=== PATIENT | male | born 1980 | race Caucasian/White ===

== ENCOUNTER 2017-05-29 12:59 | Inpatient (IN) | payer SELFPAY ==
[2017-05-29] VITALS (7 sets, daily range): BP systolic 108–138; BP diastolic 65–92; PULSE 73–101; RESP 16–20; TEMP 97.6–98.7; O2SAT 96–99
[~2017-05-29] VITALS: Ht 185.4 cm; Wt 75.3 kg
[~2017-05-29 12:59] MED LIST: RANI150 PO; ZOFR4TAB3 PO
[2017-05-29] MEDS ORDERED: SODIUM CHLORIDE 0.9% FLUSH 10 ML FLUSH IVF PRN (13:30)
[2017-05-29] MEDS ORDERED: SODIUM CHLORID 0.9% 500 ML INJ 500 ML IV ONE (13:30)
[2017-05-29] MEDS ORDERED: ASPIRIN 81 MG CHEW TAB PO ONE (13:30)
[2017-05-29 13:52] LABS: AUTOMATED NEUTROPHIL # 6.5 TH/MM3 (1.8-7.7); BASOPHIL % 0.3 % (0.0-2.0); EOSINOPHIL % 0.3 % (0.0-4.0); HEMATOCRIT 42.2 % (39.0-51.0); HEMO FLAGS DIFF FINAL; LYMPH % 17.6 % (9.0-44.0); LYMPHOCYTE # 1.6 TH/MM3 (1.0-4.8); MEAN CELL VOLUME 95.3 FL (80.0-100.0); MEAN CORPUSCULAR HEMOGLOBIN 33.7 PG (27.0-34.0); MEAN CORPUSCULAR HGB CONC 35.4 % (32.0-36.0); MONO % 9.3 % (0.0-8.0); NEUT % 72.5 % (16.0-70.0); PLATELET COUNT 194 TH/MM3 (150-450); RED BLOOD COUNT 4.43 MIL/MM3 (4.50-5.90); RED CELL DISTRIBUTION WIDTH 12.3 % (11.6-17.2); WHITE BLOOD COUNT 8.9 TH/MM3 (4.0-11.0)
[2017-05-29 14:18] LABS: ALT (GPT) 60 U/L (12-78); ANION GAP 16 MEQ/L (5-15); AST (GOT) 98 U/L (15-37); BICARBONATE 28.3 MEQ/L (21.0-32.0); BLOOD UREA NITROGEN 7 MG/DL (7-18); CHLORIDE 95 MEQ/L (98-107); GLOMERULAR FILTRATION RATE 101 ML/MIN (>89); MAGNESIUM 2.2 MG/DL (1.5-2.5); POTASSIUM 3.4 MEQ/L (3.5-5.1); SODIUM (NA) 139 MEQ/L (136-145)
--- NOTE | 2017-05-29 14:19 | PD ---
HPI Chief Complaint: Cardiac Complaint Time Seen by Provider: 13:30 Travel History International Travel<30 days: No Contact w/Intl Traveler<30days: No Traveled to known affect area: No History of Present Illness HPI Patient is a 37-year-old male presenting to emergency for evaluation of chest pain. Patient states the pain started at 9:00 last night, due to the pain he was unable to sleep. He reports that the pain radiates across his anterior chest wall. He states that his left arm feels numb in both of his legs feel numb. He reports a dull headache as well. He denies any visual changes or weakness. He does report shortness of breath, nausea but has not vomited, he further denies any fevers, chills. He reports feeling fine prior to 9:00 last night. He rates the chest pain as a 7 out of 10 and states it sore. The pain is exacerbated with movement and deep inspiration, it is not alleviated by anything. PFSH Past Medical History Blood Disorders: No Anxiety: Yes Depression: Yes Cancer: No Cardiovascular Problems: No Diabetes: No Diminished Hearing: No Endocrine: No Gastrointestinal Disorders: Yes (SEVERE HEMORRHOIDS, COLONOSCOPY) Implanted Vascular Access Dvce: No Musculoskeletal: Yes (SCOLIOSIS) Neurologic: Yes (ESSENTIAL TREMOR) Respiratory: Yes (PNEUMOTHORAX, chronic bronchitis) Immunizations Current: Yes Pneumonia: Yes (PNEUMOTHORAX) Tetanus Vaccination: < 5 Years Influenza Vaccination: No Past Surgical History Other Surgery: Yes (PNUEMOTHORAX 2005) Social History Alcohol Use: Yes (twice a day) Tobacco Use: Yes (1/2 pack per day ) Substance Use: Yes (MARIJUANA ) Allergies-Medications (Allergen,Severity, Reaction): Coded Allergies: No Known Allergies (Verified , 05/29/17) Reported Meds & Prescriptions Reported Meds & Active Scripts Active No Active Prescriptions or Reported Medications Review of Systems Except as stated in HPI: all other systems reviewed are Neg Cardiovascular: Positive: Chest Pain or Discomfort Respiratory: Positive: Shortness of Breath, Pleuritic Pain, No: Cough, Wheezing Gastrointestinal: Positive: Nausea, No: Vomiting, Diarrhea, Abdominal Pain Musculoskeletal: No: Weakness Neurologic: Positive: Headache, No: Weakness, Dizziness, Focal Abnormalities, Change in Mentation, Slurred Speech, Sensory Disturbance Physical Exam Narrative GENERAL: Thin, well-developed, well-nourished, alert male. Resting comfortably in no acute distress. SKIN: Warm and dry. Superficial abrasions to knees HEAD: Atraumatic. Normocephalic. EYES: Pupils equal and round. No scleral icterus. No injection or drainage. ENT: No nasal bleeding or discharge. Mucous membranes pink and moist. NECK: Trachea midline. No JVD. CARDIOVASCULAR: Regular rate and rhythm. RESPIRATORY: No accessory muscle use. Clear to auscultation. Breath sounds equal bilaterally. GASTROINTESTINAL: Abdomen soft, non-tender, nondistended. Hepatic and splenic margins not palpable. MUSCULOSKELETAL: Extremities without clubbing, cyanosis, or edema. No obvious deformities. Tenderness to palpation on anterior chest wall is noted. NEUROLOGICAL: Awake and alert. No obvious cranial nerve deficits. Motor grossly within normal limits. Five out of 5 muscle strength in the arms and legs. Normal speech. PSYCHIATRIC: Appropriate mood and affect; insight and judgment normal. Data Data Last Documented VS Vital Signs Date Time Temp Pulse Resp B/P Pulse Ox O2 Delivery O2 Flow Rate FiO2 05/29/17 18:22 97.9 82 17 108/65 98 Room Air Orders Electrocardiogram (05/29/17 ) Electrocardiogram (05/29/17 13:25) Ckmb (Isoenzyme) Profile (05/29/17 13:25) Complete Blood Count With Diff (05/29/17 13:25) Comprehensive Metabolic Panel (05/29/17 13:25) D-Dimer (05/29/17 13:25) Magnesium (Mg) (05/29/17 13:25) Prothrombin Time / Inr (Pt) (05/29/17 13:25) Act Partial Throm Time (Ptt) (05/29/17 13:25) Troponin I (05/29/17 13:25) Chest, Single Ap (05/29/17 13:25) Ecg Monitoring (05/29/17 13:25) Bilateral Bp Monitoring (05/29/17 13:25) Iv Access Insert/Monitor (05/29/17 13:25) Oximetry (05/29/17 13:25) Oxygen Administration (05/29/17 13:25) Aspirin Chew (Aspirin Chew) (05/29/17 13:30) Sodium Chloride 0.9% Flush (Ns Flush) (05/29/17 13:30) Sodium Chlorid 0.9% 500 Ml Inj (Ns 500 M (05/29/17 13:30) Creatine Kinase (Cpk) (05/29/17 13:25) Drug Screen, Random Urine (05/29/17 13:25) Urinalysis - C+S If Indicated (05/29/17 13:25) Lipase (05/29/17 13:28) Alcohol (Ethanol) (05/29/17 13:29) CKMB (05/29/17 13:06) CKMB% (05/29/17 13:06) Ct Pulmonary Angiogram (05/29/17 ) Lactic Acid (05/29/17 15:06) Sodium Chlor 0.9% 1000 Ml Inj (Ns 1000 M (05/29/17 15:45) Iohexol 350 Inj (Omnipaque 350 Inj) (05/29/17 15:56) Sodium Chlor 0.9% 1000 Ml Inj (Ns 1000 M (05/29/17 16:30) Arterial Blood Gas (Abg) (05/29/17 ) Lactic Acid (05/29/17 16:36) Blood Culture (05/29/17 16:36) Vancomycin Inj (Vancomycin Inj) (05/29/17 18:10) Piperacil-Tazo 4.5 Gm Premix (Zosyn 4.5 (05/29/17 18:10) Labs Laboratory Tests Test 05/29/17 05/29/17 05/29/17 05/29/17 13:06 14:20 15:00 17:00 White Blood Count 8.9 TH/MM3 Red Blood Count 4.43 MIL/MM3 Hemoglobin 14.9 GM/DL Hematocrit 42.2 % Mean Corpuscular Volume 95.3 FL Mean Corpuscular Hemoglobin 33.7 PG Mean Corpuscular Hemoglobin 35.4 % Concent Red Cell Distribution Width 12.3 % Platelet Count 194 TH/MM3 Mean Platelet Volume 6.5 FL Neutrophils (%) (Auto) 72.5 % Lymphocytes (%) (Auto) 17.6 % Monocytes (%) (Auto) 9.3 % Eosinophils (%) (Auto) 0.3 % Basophils (%) (Auto) 0.3 % Neutrophils # (Auto) 6.5 TH/MM3 Lymphocytes # (Auto) 1.6 TH/MM3 Monocytes # (Auto) 0.8 TH/MM3 Eosinophils # (Auto) 0.0 TH/MM3 Basophils # (Auto) 0.0 TH/MM3 CBC Comment DIFF FINAL Differential Comment Prothrombin Time 10.3 SEC Prothromb Time International 0.9 RATIO Ratio Activated Partial 25.6 SEC Thromboplast Time D-Dimer Quantitative (PE/DVT) 23.01 MG/L FEU Sodium Level 139 MEQ/L Potassium Level 3.4 MEQ/L Chloride Level 95 MEQ/L Carbon Dioxide Level 28.3 MEQ/L Anion Gap 16 MEQ/L Blood Urea Nitrogen 7 MG/DL Creatinine 0.85 MG/DL Estimat Glomerular Filtration 101 ML/MIN Rate Random Glucose 99 MG/DL Calcium Level 8.6 MG/DL Magnesium Level 2.2 MG/DL Total Bilirubin 0.9 MG/DL Aspartate Amino Transf 98 U/L (AST/SGOT) Alanine Aminotransferase 60 U/L (ALT/SGPT) Alkaline Phosphatase 58 U/L Total Creatine Kinase 319 U/L Creatine Kinase MB 1.0 NG/ML Creatine Kinase MB % 0.3 % Troponin I LESS THAN 0.02 NG/ML Total Protein 7.9 GM/DL Albumin 4.5 GM/DL Lipase 227 U/L Ethyl Alcohol Level 332 MG/DL Urine Color LIGHT-YELLOW Urine Turbidity CLEAR Urine pH 6.5 Urine Specific [place] 1.004 Urine Protein NEG mg/dL Urine Glucose (UA) NEG mg/dL Urine Ketones 10 mg/dL Urine Occult Blood NEG Urine Nitrite NEG Urine Bilirubin NEG Urine Urobilinogen LESS THAN 2.0 MG/DL Urine Leukocyte Esterase NEG Urine RBC LESS THAN 1 /hpf Urine WBC LESS THAN 1 /hpf Urine Bacteria OCC /hpf Microscopic Urinalysis Comment CULT NOT INDICATED Urine Opiates Screen NEG Urine Barbiturates Screen NEG Urine Amphetamines Screen NEG Urine Benzodiazepines Screen NEG Urine Cocaine Screen NEG Urine Cannabinoids Screen NEG Lactic Acid Level 4.9 mmol/L 5.3 mmol/L Test 05/29/17 17:05 Blood Gas Puncture Site LT RADIAL Blood Gas Patient Temperature 98.6 Blood Gas HCO3 25 mmol/L Blood Gas Base Excess 2.5 mmol/L Blood Gas Oxygen Saturation 93 % Arterial Blood pH 7.52 Arterial Blood Partial 31 mmHg Pressure CO2 Arterial Blood Partial 88 mmHG Pressure O2 Arterial Blood Oxygen Content 17.2 Vol % Arterial Blood 3.1 % Carboxyhemoglobin Arterial Blood Methemoglobin 0.8 % Blood Gas Hemoglobin 13.0 G/DL Blood Gas Inspired Oxygen 21 % MDM Medical Decision Making Medical Screen Exam Complete: Yes Emergency Medical Condition: Yes Interpretation(s) Last Impressions Chest X-Ray 05/29/17 1325 Signed Impressions: Service Date/Time: Monday, May 29, 2017 13:57 - CONCLUSION: 1. No active disease. Mild scoliosis. No significant change. Al Romo MD Vital Signs Date Time Temp Pulse Resp B/P Pulse Ox O2 Delivery O2 Flow Rate FiO2 05/29/17 13:31 17 98 Room Air 05/29/17 13:31 98 Room Air 05/29/17 13:31 97.8 98 17 117/79 97 Room Air 121/86 05/29/17 13:10 98 17 99 Room Air 05/29/17 13:00 98.7 101 20 138/92 96 Differential Diagnosis ACS versus costochondritis versus rhabdomyolysis versus metabolic abnormality versus other Narrative Course Patient is a 37-year-old male presenting for evaluation of chest pain started last night. Patient appears well, his vital signs are stable. Labs and imaging ordered and pending. IV access established, patient placed on telemetry monitoring and continuous pulse oximetry. Patient denies any previous cardiac history. CBC with no acute abnormality noted. Chest x-ray shows no acute disease D-dimer 23.01, CT pulmonary angiogram ordered and pending. Lipase 227 CK 319 Potassium 3.4 Anion gap 16 Lactic 4.9, 2L IVF ordered, repeat lactic ordered as well as blood cultures. Repeat lactic acid 5.3 ABG shows metabolic alkalosis with superimposed respiratory acidosis. CT pulm angiogram read by radiologist is negative for PE, mild peribronchial thickening. Vancomycin and Zosyn ordered [facility] paged for admit. Pt meets sepsis criteria based on HR and PaCO2 values. Dr. Yañez accepted admit, orders placed. Sepsis Criteria SIRS Criteria (2 or more): Heart rate over 90, RR > 20 or PaCO2 < 32 (31.4 PaCO2) Severe Sepsis (+one): Lactate >2 Septic Shock Criteria: Unresponsive to 30ml/kg fluid bolus, Lactic acid >=4 Criteria Outcome: Meets septic shock criteria Diagnosis Primary Impression: Sepsis Qualified Code: A41.9 - Sepsis, due to unspecified organism Admitting Information Admitting Physician Requests: Admit Scripts No Active Prescriptions or Reported Meds Condition: Stable Donna Laboy INSTRUCTIONAL DESIGN TECHNOLOGIST May 29, 2017 14:19
[2017-05-29 14:22] LABS: ALKALINE PHOSPHATASE 58 U/L (45-117); CREATINE KINASE 319 U/L (39-308); TOTAL BILIRUBIN ADULT 0.9 MG/DL (0.2-1.0)
--- NOTE | 2017-05-29 14:29 | RADRPT ---
EXAM DATE/TIME: 05/29/2017 13:57 [facility] COMPARISON: CHEST SINGLE AP, November 14, 2015, 18:58. INDICATIONS : Chest pain. MEDICAL HISTORY : Scoliosis. SURGICAL HISTORY : None. ENCOUNTER: Initial ACUITY: 2 days PAIN SCORE: 6/10 LOCATION: Bilateral chest FINDINGS: A single view of the chest demonstrates the lungs to be symmetrically aerated without evidence of mas s, infiltrate or effusion. The cardiomediastinal contours are unremarkable. Osseous structures are intact. CONCLUSION: 1. No active disease. Mild scoliosis. No significant change. Al Romo MD on May 29, 2017 at 14:27 Board Certified Radiologist. This report was verified electronically.
[2017-05-29 14:30] LABS: APTT (PATIENT) 25.6 SEC (24.3-30.1); INTERNATIONAL NORMALIZED RATIO 0.9 RATIO; PROTHROMBIN TIME - PATIENT 10.3 SEC (9.8-11.6)
[2017-05-29 15:00] LABS: AMPHETAMINE, URINE NEG (NEG); BARBITURATES, URINE NEG (NEG); COCAINE, URINE NEG (NEG)
[2017-05-29 15:16] LABS: BACTERIA, URINE OCC /hpf; BLOOD, URINE NEG (NEG); COMMENT (UR) CULT NOT INDICATED; CULTURE IF INDICATED CULT NOT INDICATED; GLUCOSE,URINE NEG (NEG); KETONE, URINE 10 mg/dL (NEG); NITRITE,URINE NEG (NEG); PH, URINE 6.5 (5.0-8.5); URINE COLOR LIGHT-YELLOW (YELLW/STRAW)
[2017-05-29] MEDS ORDERED: SODIUM CHLOR 0.9% 1000 ML INJ 1,000 ML IV ONE ×2 (15:45→16:30)
[2017-05-29] MEDS ORDERED: IOHEXOL 350 MG/ML 10 ML VIAL (for RAD DIAG) IV ONE (15:56)
--- NOTE | 2017-05-29 16:30 | RADRPT ---
EXAM DATE/TIME: 05/29/2017 15:34 [facility] COMPARISON: No previous studies available for comparison. INDICATIONS : Chest pain with arms tingling. IV CONTRAST: 50 cc Omnipaque 350 (iohexol) IV RADIATION DOSE: 22.74 CTDIvol (mGy) MEDICAL HISTORY : None SURGICAL HISTORY : None. ENCOUNTER: Initial ACUITY: 1 day PAIN SCALE: 6/10 LOCATION: chest TECHNIQUE: Volumetric scanning of the chest was performed using a pulmonary embolism protocol MIP images were re constructed. Using automated exposure control and adjustment of the mA and/or kV according to patien t size, radiation dose was kept as low as reasonably achievable to obtain optimal diagnostic quality images. DICOM format image data is available electronically for review and comparison. Follow-up recommendations for incidentally detected pulmonary nodules are based at a minimum on nodul e size and patient risk factors according to Fleischner Society Guidelines. FINDINGS: No filling defects to suggest pulmonary embolic disease. No pleural or pericardial effusion. No focal lung consolidation. There is mild peribronchial thickening cyst in the upper lobes.CONCLUSION: 1. Negative for pulmonary embolus. 2. Mild peribronchial thickening. Al Romo MD on May 29, 2017 at 16:12 Board Certified Radiologist. This report was verified electronically.
[2017-05-29 17:21] LABS: BLOOD GAS BASE EXCESS 2.5 mmol/L (-2-2); BLOOD GAS CARBOXYHEMOGLOBIN 3.1 % (0-4); BLOOD GAS HCO3 25 mmol/L (22-26); BLOOD GAS METHEMOGLOBIN 0.8 % (0-2); BLOOD GAS O2 HGB SATURATION 93 % (90-100); BLOOD GAS OXYGEN CONTENT 17.2 Vol % (12.0-20.0); BLOOD GAS PCO2 31 mmHg (38-42); BLOOD GAS PO2 88 mmHG (61-120); CRITICAL VALUE YES; TEMP CORR TO 98.6
[2017-05-29 17:22] LABS: DRAW SITE LT RADIAL; FIO2 21 %; NUMBER OF ARTERIAL PUNCTURES 1; STAT YES; ULNAR PULSE PRESENT
[2017-05-29] MEDS ORDERED: VANCOMYCIN INJ 1,000 MG in SODIUM CHLOR 0.9% 250 ML INJ 250 ML IV STA (18:10)
[2017-05-29] MEDS ORDERED: PIPERACIL-TAZO 4.5 GM PREMIX 100 ML IV STA (18:10)
[2017-05-29] MEDS ORDERED: BISACODYL 10 MG SUPP RECTAL PRN (18:30)
[2017-05-29] MEDS ORDERED: SODIUM CHLORIDE 0.9% FLUSH 10 ML FLUSH IV FLUSH PRN (18:30)
[2017-05-29] MEDS ORDERED: LACTULOSE SYRUP 20 GM/30 ML CUP PO PRN (18:30)
[2017-05-29] MEDS ORDERED: MAGNESIUM HYDROXIDE SUSP 30 ML CUP PO PRN (18:30)
[2017-05-29] MEDS ORDERED: SENNOSIDES 8.6 MG TAB PO PRN (18:30)
[2017-05-29] MEDS ORDERED: NALOXONE HCL 0.4 MG/ML AMP IV PRN (18:30)
[2017-05-29] MEDS ORDERED: FLUMAZENIL 0.5 MG/5 ML VIAL IV PUSH PRN (19:15)
[2017-05-29] MEDS ORDERED: LORazepam 2 MG TAB PO PRN (19:15)
[2017-05-29] MEDS ORDERED: LORazepam 2 MG/ML VIAL IV PUSH PRN ×4 (19:15)
--- NOTE | 2017-05-29 19:22 | HHI.HP ---
[facility] No Primary Care Physician Admission Diagnosis SEPSIS Diagnoses: Travel History International Travel<30 Days: No Contact w/Intl Traveler <30 Da: No Traveled to Known Affected Are: No History of Present Illness 37-year-old male with a history of liver disease, essential tremor, who presents with onset of extreme chest pain the evening of 05/28. Patient says he pain is like somebody standing on his chest. No exacerbating or relieving factors. Tenderness to self palpation. Patient denies that this feels like reflux. He does say that Gatorade here is making his esophagus burn however. He denies any nausea or vomiting. Denies any shortness of breath. Denies any lightheadedness or dizziness. Review of Systems Performed and negative except for history of present illness and past medical history. Past Family Social History Past Medical History Depression. Patient denies any SI or HI Claustrophobia Scoliosis Hemorrhoids History of pneumothorax resolved. Past Surgical History Intervention for pneumothorax in 2004 Colonoscopy Sinus surgery Allergies: Coded Allergies: No Known Allergies (Verified , 05/29/17) Family History does not seem to know much about father's medical history. Social History Patient has smoked a few cigarettes a day since he was 16 years old. When asked about alcohol intake, patient is very defensive. Will not answer with a solid number. Says that he only drinks several beers a day, and only drinks red wine when he is cooking, but not when he is eating. Patient reports occasional marijuana use. Denies any IV drug use. Physical Exam Vital Signs Vital Signs Date Time Temp Pulse Resp B/P Pulse Ox O2 Delivery O2 Flow Rate FiO2 05/29/17 18:22 97.9 82 17 108/65 98 Room Air 05/29/17 16:35 98.5 77 18 122/84 98 Room Air 05/29/17 14:27 97.8 96 17 120/87 99 Room Air 05/29/17 13:31 17 98 Room Air 05/29/17 13:31 98 Room Air 05/29/17 13:31 97.8 98 17 117/79 97 Room Air 121/86 05/29/17 13:10 98 17 99 Room Air 05/29/17 13:00 98.7 101 20 138/92 96 Physical Exam GENERAL: This is a well-nourished, well-developed patient. Alert and oriented 3. SKIN: No rashes, ecchymoses or lesions. Cool and dry. HEAD: Atraumatic. Normocephalic. No temporal or scalp tenderness. EYES: Pupils equal round and reactive. Extraocular motions intact. No scleral icterus. No injection or drainage. ENT: Nose without bleeding, purulent drainage or septal hematoma. Throat without erythema, tonsillar hypertrophy or exudate. Uvula midline. Airway patent. NECK: Trachea midline. No JVD or lymphadenopathy. Supple, nontender, no meningeal signs. CARDIOVASCULAR: Regular rate and rhythm without murmurs, gallops, or rubs. RESPIRATORY: Clear to auscultation. Breath sounds equal bilaterally. No wheezes , rales, or rhonchi. GASTROINTESTINAL: Abdomen soft, non-tender, nondistended. No hepato-splenomegaly , or palpable masses. No guarding. MUSCULOSKELETAL: Extremities without clubbing, cyanosis, or edema. No joint tenderness, effusion, or edema noted. No calf tenderness. Negative Homans sign bilaterally. NEUROLOGICAL: Awake and alert. Cranial nerves II through XII intact. Motor and sensory grossly within normal limits. Five out of 5 muscle strength in all muscle groups. Normal speech. Patient does have fine tremor bilaterally. Laboratory Laboratory Tests Test 05/29/17 05/29/17 05/29/17 05/29/17 13:06 14:20 15:00 17:00 White Blood Count 8.9 Red Blood Count 4.43 Hemoglobin 14.9 Hematocrit 42.2 Mean Corpuscular Volume 95.3 Mean Corpuscular Hemoglobin 33.7 Mean Corpuscular Hemoglobin 35.4 Concent Red Cell Distribution Width 12.3 Platelet Count 194 Mean Platelet Volume 6.5 Neutrophils (%) (Auto) 72.5 Lymphocytes (%) (Auto) 17.6 Monocytes (%) (Auto) 9.3 Eosinophils (%) (Auto) 0.3 Basophils (%) (Auto) 0.3 Neutrophils # (Auto) 6.5 Lymphocytes # (Auto) 1.6 Monocytes # (Auto) 0.8 Eosinophils # (Auto) 0.0 Basophils # (Auto) 0.0 CBC Comment DIFF FINAL Differential Comment Prothrombin Time 10.3 Prothromb Time International 0.9 Ratio Activated Partial 25.6 Thromboplast Time D-Dimer Quantitative (PE/DVT) 23.01 Sodium Level 139 Potassium Level 3.4 Chloride Level 95 Carbon Dioxide Level 28.3 Anion Gap 16 Blood Urea Nitrogen 7 Creatinine 0.85 Estimat Glomerular Filtration 101 Rate Random Glucose 99 Calcium Level 8.6 Magnesium Level 2.2 Total Bilirubin 0.9 Aspartate Amino Transf 98 (AST/SGOT) Alanine Aminotransferase 60 (ALT/SGPT) Alkaline Phosphatase 58 Total Creatine Kinase 319 Creatine Kinase MB 1.0 Creatine Kinase MB % 0.3 Troponin I LESS THAN 0.02 Total Protein 7.9 Albumin 4.5 Lipase 227 Ethyl Alcohol Level 332 Urine Color LIGHT-YELLOW Urine Turbidity CLEAR Urine pH 6.5 Urine Specific [place] 1.004 Urine Protein NEG Urine Glucose (UA) NEG Urine Ketones 10 Urine Occult Blood NEG Urine Nitrite NEG Urine Bilirubin NEG Urine Urobilinogen LESS THAN 2.0 Urine Leukocyte Esterase NEG Urine RBC LESS THAN 1 Urine WBC LESS THAN 1 Urine Bacteria OCC Microscopic Urinalysis Comment CULT NOT INDICATED Urine Opiates Screen NEG Urine Barbiturates Screen NEG Urine Amphetamines Screen NEG Urine Benzodiazepines Screen NEG Urine Cocaine Screen NEG Urine Cannabinoids Screen NEG Lactic Acid Level 4.9 5.3 Test 05/29/17 17:05 Blood Gas Puncture Site LT RADIAL Blood Gas Patient Temperature 98.6 Blood Gas HCO3 25 Blood Gas Base Excess 2.5 Blood Gas Oxygen Saturation 93 Arterial Blood pH 7.52 Arterial Blood Partial 31 Pressure CO2 Arterial Blood Partial 88 Pressure O2 Arterial Blood Oxygen Content 17.2 Arterial Blood 3.1 Carboxyhemoglobin Arterial Blood Methemoglobin 0.8 Blood Gas Hemoglobin 13.0 Blood Gas Inspired Oxygen 21 Date/Time Procedure Status Source Growth 05/29/17 17:01 Aerobic Blood Culture Received Blood Peripheral Pending 05/29/17 17:01 Anaerobic Blood Culture Received Blood Peripheral Pending Result Diagram: 05/29/17 1306 05/29/17 1306 Imaging Last Impressions Chest X-Ray 05/29/17 1325 Signed Impressions: Service Date/Time: Monday, May 29, 2017 13:57 - CONCLUSION: 1. No active disease. Mild scoliosis. No significant change. Al Romo MD CT Angiography 05/29/17 0000 Signed Impressions: Service Date/Time: Monday, May 29, 2017 15:34 - CONCLUSION: 1. Negative for pulmonary embolus. 2. Mild peribronchial thickening. Al Romo MD Assessment and Plan Assessment and Plan //Atypical Chest pain -Tenderness to palpation. Suspect costochondritis. Also with esophageal burning worsened by Gatorade. Suspect reflux worsened by alcoholism. -Time of onset around bedtime on 05/28. First troponin here negative at 1 PM. -PPI. Monitor. //Sepsis -Tachycardia on admission of 101, with heart rate of 20. Elevated lactate 5.3. Suspected pneumonia on CT on angiogram, with peribronchial thickening. Suspected aspiration given alcoholism. -Zosyn Follow-up cultures //Anion gap metabolic acidosis //Possible alcoholic ketoacidosis //Lactic acidosis -Lactate 5.3. Ketones 10 on urinalysis. Lactic acidosis Likely secondary to sepsis and conjunction with liver dysfunction. We'll give thiamine, D5 half- normal saline. - recheck lactate. //Alcoholism. -Alcohol level in the 300s on admission. Patient denies drinking in the past day -[facility] protocol -Counseling when sober. //Tobaccoism. Counseling when sober //Acute anemia. Potassium 3.4 on admission. Although this typically would be considered mild, in the setting of acidosis which will be corrected, this has a potential for going lower. This is replaced, and also add to fluid. Follow-up tomorrow morning. //Marijuana use. Counseling once over. //DVT prophylaxis. SCDs. Avoid and regulation of the setting of liver disease. Discussed Condition With Patient, ED physician. Physician Certification 2 Midnight Certification Type: Admission for Inpatient Services Order for Inpatient Services The services are ordered in accordance with Medicare regulations or non- Medicare payer requirements, as applicable. In the case of services not specified as inpatient-only, they are appropriately provided as inpatient services in accordance with the 2-midnight benchmark. Estimated LOS (days): 2 days is the estimated time the patient will need to remain in the hospital, assuming treatment plan goals are met and no additional complications. Post-Hospital Plan: Not yet determined Boston Yañez MD May 29, 2017 19:22
[2017-05-29] MEDS ORDERED: THIAMINE INJ 500 MG in SODIUM CHLORIDE 0.9% INJ 100 ML IV ONE (20:00)
[2017-05-29] MEDS ORDERED: THIAMINE INJ 500 MG in SODIUM CHLOR 0.9% 250 ML INJ 250 ML IV ONE (20:08)
[2017-05-29] MEDS: PANTOPRAZOLE SODIUM 40 MG VIAL IV PUSH SCH (20:31)
[2017-05-29] MEDS ORDERED: THIAMINE HCL 100 MG TAB PO ONE (21:00)
[2017-05-29] MEDS: D5-1/2 NS + KCL 20 MEQ INJ 1,000 ML IV SCH (21:03)
[2017-05-29] MEDS: MORPHINE SULFATE 4 MG/ML INJ IV PUSH PRN (21:28)
[2017-05-29] MEDS: POTASSIUM CHLOR 10 MEQ PREMIX 100 ML IV SCH (23:04)
[2017-05-29] MEDS: ONDANSETRON HCL 4 MG/2 ML VIAL IVP PRN (23:04)
[2017-05-29] MEDS: DOCUSATE SODIUM 50 MG/SENNA 8.6 MG TAB PO SCH (23:05)
[2017-05-29] MEDS: LORazepam 1 MG TAB PO PRN (23:05)
[2017-05-29] MEDS: SODIUM CHLORIDE 0.9% FLUSH 10 ML FLUSH IV FLUSH SCH (23:06)
[2017-05-30] VITALS (9 sets, daily range): BP systolic 114–131; BP diastolic 73–80; PULSE 55–79; RESP 16–20; TEMP 96–98.9; O2SAT 96–98
[2017-05-30] MEDS: PIPERACIL-TAZO 4.5 GM PREMIX 100 ML IV SCH ×4 (00:10→18:31)
[2017-05-30] MEDS: POTASSIUM CHLOR 10 MEQ PREMIX 100 ML IV SCH ×2 (00:15→03:26)
[2017-05-30] MEDS: LORazepam 1 MG TAB PO PRN (03:22)
[2017-05-30] MEDS: MORPHINE SULFATE 4 MG/ML INJ IV PUSH PRN (03:23)
[2017-05-30] MEDS: D5-1/2 NS + KCL 20 MEQ INJ 1,000 ML IV SCH ×2 (04:26→13:42)
[2017-05-30] MEDS: ONDANSETRON HCL 4 MG/2 ML VIAL IVP PRN (06:03)
[2017-05-30 07:55] LABS: BASOPHIL % 0.4 % (0.0-2.0); EOSINOPHIL # 0.1 TH/MM3 (0-0.4); EOSINOPHIL % 1.6 % (0.0-4.0); HEMATOCRIT 37.8 % (39.0-51.0); HEMO FLAGS DIFF FINAL; LYMPH % 17.1 % (9.0-44.0); LYMPHOCYTE # 0.7 TH/MM3 (1.0-4.8); MEAN CELL VOLUME 96.2 FL (80.0-100.0); MEAN CORPUSCULAR HEMOGLOBIN 33.5 PG (27.0-34.0); MEAN CORPUSCULAR HGB CONC 34.9 % (32.0-36.0); NEUT % 71.9 % (16.0-70.0); PLATELET COUNT 135 TH/MM3 (150-450); RED BLOOD COUNT 3.93 MIL/MM3 (4.50-5.90); RED CELL DISTRIBUTION WIDTH 12.3 % (11.6-17.2); WHITE BLOOD COUNT 4.2 TH/MM3 (4.0-11.0)
[2017-05-30 08:19] LABS: ALT (GPT) 40 U/L (12-78); ANION GAP 10 MEQ/L (5-15); AST (GOT) 55 U/L (15-37); BLOOD UREA NITROGEN 5 MG/DL (7-18); CHLORIDE 98 MEQ/L (98-107); GLOMERULAR FILTRATION RATE 119 ML/MIN (>89); POTASSIUM 3.5 MEQ/L (3.5-5.1); SODIUM (NA) 137 MEQ/L (136-145)
[2017-05-30 08:35] LABS: ALKALINE PHOSPHATASE 49 U/L (45-117); TOTAL BILIRUBIN ADULT 2.3 MG/DL (0.2-1.0)
[2017-05-30] MEDS: DOCUSATE SODIUM 50 MG/SENNA 8.6 MG TAB PO SCH ×2 (09:00→22:13)
[2017-05-30] MEDS: SODIUM CHLORIDE 0.9% FLUSH 10 ML FLUSH IV FLUSH SCH ×2 (09:00→22:13)
[2017-05-30] MEDS: PANTOPRAZOLE SODIUM 40 MG VIAL IV PUSH SCH ×2 (09:09→22:13)
--- NOTE | 2017-05-30 09:31 | HHI.PR ---
Subjective Remarks Patient seen this afternoon around 1 PM. Denies any shortness breath. Reports atypical chest pain continues. Discussed with nursing this morning. Ventricular tachycardia on telemetry, short-lived and reportedly asymptomatic. Cardiology consult. Appreciate assistance. Patient denies any palpitations. Objective Vital Signs Date Time Temp Pulse Resp B/P Pulse Ox O2 Delivery O2 Flow Rate FiO2 05/30/17 04:00 98.5 72 16 131/80 96 05/30/17 03:37 16 05/30/17 00:00 98.9 79 16 119/73 96 05/29/17 22:03 97.6 73 16 117/71 98 05/29/17 20:26 79 20 121/73 96 Room Air 05/29/17 18:22 97.9 82 17 108/65 98 Room Air 05/29/17 16:35 98.5 77 18 122/84 98 Room Air 05/29/17 14:27 97.8 96 17 120/87 99 Room Air 05/29/17 13:31 17 98 Room Air 05/29/17 13:31 98 Room Air 05/29/17 13:31 97.8 98 17 117/79 97 Room Air 121/86 05/29/17 13:10 98 17 99 Room Air 05/29/17 13:00 98.7 101 20 138/92 96 I/O 05/29/17 05/29/17 05/29/17 05/30/17 05/30/17 05/30/17 06:59 14:59 22:59 06:59 14:59 22:59 Intake Total 200 ml 250 ml Output Total 900 ml 0 ml 801 ml Balance -900 ml 200 ml -551 ml Intake Oral 200 ml 250 ml Output Urine Total 900 ml 0 ml 800 ml Emesis 1 ml # Voids 1 # Bowel Movements 0 0 0 Result Diagram: 05/30/17 0653 05/30/17 0653 Objective Remarks GENERAL: patient sitting up in bed. Appears comfortable. Alert and oriented 3. SKIN: Warm and dry. HEAD: Normocephalic. EYES: No scleral icterus. No injection or drainage. NECK: Supple, trachea midline. No JVD. CARDIOVASCULAR: Regular rate and rhythm without murmurs, gallops, or rubs. RESPIRATORY: Breath sounds equal bilaterally. No accessory muscle use. GASTROINTESTINAL: Abdomen soft, non-tender, nondistended. MUSCULOSKELETAL: No cyanosis, or edema. BACK: Nontender without obvious deformity. No CVA tenderness. A/P Assessment and Plan =======05/30/17===== //Ventricular tachycardia. Electrolytes reviewed. EKG, Echocardiogram ordered. Cardiology consulted. -Lactate 4.3. Repeat 1.5. -Hyperbilirubinemia. Bilirubin components ordered. Possibly delirious from decreased appetite. Ultrasound ordered and pending. -Continue on Zosyn for pneumonia. //Atypical Chest pain -Tenderness to palpation. Suspect costochondritis. Also with esophageal burning worsened by Gatorade. Suspect reflux worsened by alcoholism. -Time of onset around bedtime on 05/28. First troponin here negative at 1 PM. -Continue PPI. Monitor. //Sepsis -Tachycardia on admission of 101, with heart rate of 20. Elevated lactate 5.3. Suspected pneumonia on CT on angiogram, with peribronchial thickening. Suspected aspiration given alcoholism. -Zosyn Follow-up cultures. Negative to date //Anion gap metabolic acidosis //Possible alcoholic ketoacidosis //Lactic acidosis -Lactate 5.3. Ketones 10 on urinalysis. Lactic acidosis Likely secondary to sepsis and conjunction with liver dysfunction. We'll give thiamine, D5 half- normal saline. -Lactic acidosis resolved. Continue D5 1 half normal saline fluids. //Alcoholism. -Alcohol level in the 300s on admission. Patient denies drinking in the past day prior to admission. -Continue [facility] protocol -Cessation counseling provided. //Tobaccoism. Cessation counseling provided. Cessation strongly advised. //Acute anemia. Potassium 3.4 on admission. Although this typically would be considered mild, in the setting of acidosis which will be corrected, this has a potential for going lower. This is replaced, and also add to fluid. -Resolved. Potassium 3.5 on 05/30. -Continue to monitor and replace as necessary. //Marijuana use. Cessation counseling provided. Cessation strongly advised. //DVT prophylaxis. SCDs. Avoid and regulation of the setting of liver disease. Discharge Planning when cleared by cardiology. Boston Yañez MD May 30, 2017 09:31
--- NOTE | 2017-05-30 10:50 | MB ---
cc: ADIEL ORTIZ M.D. DATE OF CONSULTATION: 05/30/2017 REASON FOR CONSULTATION Tachycardia. HISTORY OF PRESENT ILLNESS The patient is a 37-year-old white male with a history of spontaneous pneumothorax in 2006, chronic sinusitis, alcohol abuse, essential tremor, who presented to the hospital with chest pain. For the past approximately 48-hours he has had a constant substernal chest discomfort which he vaguely describes as "sharp" and "burning". There has been no associated shortness of breath, nausea or diaphoresis. Sometimes turning in bed or moving his upper extremities exacerbates the pain. He also denies palpitations, lightheadedness, pedal edema, paroxysmal nocturnal dyspnea, pleurisy, fevers, cough. About 2 weeks ago, while walking out to a chicken coupe, he had a very brief syncopal episode while out in the heat. He felt moderately lightheaded before passing out. He denies any other recent episodes of loss of consciousness. On monitoring here in the hospital he developed a nonsustained episode of probably narrow complex tachycardia. PAST MEDICAL HISTORY 1. Spontaneous pneumothorax September 2007. 2. Chronic sinusitis. 3. Essential tremor. PAST SURGICAL HISTORY Sinus surgery. MEDICATION Cardiac medications at home: None. ALLERGIES NO KNOWN DRUG ALLERGIES. FAMILY HISTORY There is no significant family history of early myocardial infarction. The patient states his mother has had problems with congestive heart failure in her 60s. SOCIAL HISTORY The patient smokes a few cigarettes per day. He drinks alcohol. There is no history of intravenous drug abuse. REVIEW OF SYSTEMS As in the history of present illness, otherwise negative or noncontributory. He also denies headache, visual changes, unilateral weakness or numbness, melena, abdominal pain. Rarely he experiences bright red blood per rectum due to hemorrhoids. PHYSICAL EXAMINATION VITAL SIGNS: His blood pressure is 127/79 with pulse of 58, respirations 20. GENERAL: In general he is a well-developed, well-nourished white male, in no acute distress. HEENT: Jugular venous pressure is normal. Carotid pulses are 2+ bilaterally and without bruits. CHEST: Examination of the chest reveals clear lung padilla. CARDIAC: On cardiac examination he has a regular rhythm and rate without S3-S4 or murmur. ABDOMEN: On abdominal examination he has a soft, nontender abdomen. Bowel sounds are present. There is no definite hepatosplenomegaly. EXTREMITIES: Examination of the extremities reveals no clubbing, cyanosis or edema. LABORATORY DATA Laboratory data includes WBC 4.2, hemoglobin 13.2, platelets 135, potassium 3.5, BUN 5, creatinine 0.74, troponin less than 0.02, CK 319, INR 0.9. IMAGING STUDIES Chest x-ray shows no acute disease. EKG From 05/30/2017 at 09:51 a.m. shows sinus bradycardia, otherwise normal EKG. IMPRESSION Nonsustained tachyarrhythmia in this 37-year-old white male with a history of chronic sinusitis, alcohol abuse, essential tremor. His numerous rhythm strips have been reviewed. Unfortunately, the vast majority of the rhythm strips demonstrate considerable artifact. I suspect the few episodes of nonsustained tachycardia are supraventricular in origin. A couple of the rhythm strips suggest the possibility of atrial flutter or atrial tachycardia. With respect to his chest pains, they are extremely atypical for myocardial ischemia. Despite constant chest discomfort for approximately the last 48 hours, cardiac enzymes are negative for myocardial infarction. EKG show no acute ST-segment or T-wave changes. He has no major coronary artery disease risk factors except for minimal tobacco abuse. CT angiogram of the chest shows no evidence for pulmonary embolism. Treatment of his tachycardia would be difficult medically. He also has underlying bradycardia with heart rates, while awake, this morning in the 40s. RECOMMENDATIONS 1. Check a 2-D echo to assess his left ventricular function. 2. As it will be difficult to treat his tachyarrhythmias with medical therapy, will consult the agent licensing clerk for his recommendations, consider electrophysiology study versus continued observation. MD VIRGINIA Padilla/ALEJANDRINA /10:15 AM /10:29 AM JAZMINE
--- NOTE | 2017-05-30 11:18 | EKG ---
Date Performed: 05/29/2017 Time Performed: 13:23:42 PTAGE: 37 years EKG: Sinus rhythm POSSIBLE RIGHT VENTRICULAR HYPERTROPHY ABNORMAL ECG NO PREVIOUS TRACING DOCTOR: Jasson Hui Interpretating Date/Time 05/30/2017 11:16:44
--- NOTE | 2017-05-30 11:54 | EKG ---
Date Performed: 05/30/2017 Time Performed: 09:51:08 PTAGE: 37 years EKG: SINUS BRADYCARDIA WITH SINUS ARRHYTHMIA INDETERMINATE AXIS ABNORMAL ECG PREVIOUS TRACING : 05/29/2017 13.23 DOCTOR: Jasson Hui Interpretating Date/Time 05/30/2017 11:53:29
[2017-05-30 13:11] LABS: INDIRECT BILIRUBIN 1.7 MG/DL (0.0-0.8); TOTAL BILIRUBIN ADULT 2.1 MG/DL (0.2-1.0)
--- NOTE | 2017-05-30 14:57 | ECHRPT ---
Indication: Supraventricular tachycardia CONCLUSIONS Normal left ventricular size and wall thickness. The left ventricular systolic function is normal wi th an estimated ejection fraction in the range of 50-55%. Left ventricular diastolic function parameters a re normal. Normal wall motion. Trace mitral valve regurgitation. There is trace tricuspid valve regurgitation. The estimated pulmonary arterial pressure is 30 mmHg. BP: 131 / 80 HR: 72 Rhythm: Other MEASUREMENTS (Male / Female) Normal Values Technical Quality:Good 2D ECHO LV Diastolic Diameter PLAX 4.8 cm 4.2 - 5.9 / 3.9 - 5.3 cm LV Systolic Diameter PLAX 3.3 cm IVS Diastolic Thickness 1.0 cm 0.6 - 1.0 / 0.6 - 0.9 cm LVPW Diastolic Thickness 1.0 cm 0.6 - 1.0 / 0.6 - 0.9 cm LV Relative Wall Thickness 0.4 RV Internal Dim ED PLAX 2.4 cm LVOT Diameter 2.0 cm LA Systolic Diameter LX 3.0 cm 3.0 - 4.0 / 2.7 - 3.8 cm M-MODE Aortic Root Diameter MM 3.3 cm AV Cusp Separation MM 2.3 cm DOPPLER AV Peak Velocity 118.0 cm/s AV Peak Gradient 5.6 mmHg LVOT Peak Velocity 95.8 cm/s LVOT Peak Gradient 3.7 mmHg AV Area Cont Eq pk 2.6 cm MR Peak Velocity 270.0 cm/s MR Peak Gradient 29.2 mmHg Mitral E Point Velocity 83.4 cm/s Mitral A Point Velocity 51.8 cm/s Mitral E to A Ratio 1.6 LV E' Lateral Velocity 10.7 cm/s Mitral E to LV E' Lateral Ratio 7.8 LV E' Septal Velocity 9.2 cm/s Mitral E to LV E' Septal Ratio 9.1 TR Peak Velocity 225.0 cm/s TR Peak Gradient 20.3 mmHg PV Peak Velocity 88.2 cm/s PV Peak Gradient 3.1 mmHg FINDINGS LEFT VENTRICLE Normal left ventricular size and wall thickness. The left ventricular systolic function is normal wi th an estimated ejection fraction in the range of 50-55%. Left ventricular diastolic function parameters a re normal. MITRAL VALVE Trace mitral valve regurgitation. TRICUSPID VALVE There is trace tricuspid valve regurgitation. The estimated pulmonary arterial pressure is 30 mmHg. Elan Miguel MD (Electronically Signed) Final Date:30 May 2017 14:56
--- NOTE | 2017-05-30 19:12 | RADRPT ---
EXAM DATE/TIME: 05/30/2017 17:17 [facility] COMPARISON: No previous studies available for comparison. INDICATIONS : Increased labs. MEDICAL HISTORY : Essential tremor. Pneumothorax. Severe hemorroids. Scoliosis. Chronic bronchitis. Depression. Anxiety . SURGICAL HISTORY : Colonoscopy. ENCOUNTER: Initial ACUITY: 1 day PAIN SCORE: 3/10 LOCATION: Bilateral upper quadrant MEASUREMENTS: LIVER: 17.5 cm length COMMON DUCT: 3 mm RIGHT KIDNEY: 10.1 x 6.0 x 5.2 cm SPLEEN: 11.9 cm length FINDINGS: LIVER: Normal echotexture without focal lesion or ductal dilatation. Hepatopedal flow seen in the portal ve in. COMMON DUCT: No intraluminal mass or stone visualized. GALLBLADDER: Contains no stones, demonstrates no wall thickening or pericholecystic fluid. PANCREAS: The visualized portions are within normal limits. RIGHT KIDNEY: No hydronephrosis, stone or mass. SPLEEN: No focal lesion. CONCLUSION: 1. Hepatomegaly without focal lesion. 2. No gallstones seen. Kip Barfield MD on May 30, 2017 at 19:09 Board Certified Radiologist. This report was verified electronically.
[2017-05-31] VITALS (12 sets, daily range): BP systolic 112–128; BP diastolic 72–87; PULSE 58–98; RESP 16–20; TEMP 96.4–98.4; O2SAT 97–99
[2017-05-31] MEDS: PIPERACIL-TAZO 4.5 GM PREMIX 100 ML IV SCH ×4 (00:25→17:31)
--- NOTE | 2017-05-31 07:27 | PD.CARD.PN ---
Subjective Subjective Remarks Substernal CP persists, overall better, now increases with deep inspiration. No palpitations, dizziness, dyspnea. Objective Medications No cardiac medications. Vital Signs / I&O Vital Signs Date Time Temp Pulse Resp B/P Pulse Ox O2 Delivery O2 Flow Rate FiO2 05/31/17 04:01 59 05/31/17 04:00 97.9 66 16 112/76 98 05/31/17 00:01 58 05/31/17 00:00 96.4 67 16 125/82 98 05/30/17 20:00 57 05/30/17 20:00 97.7 68 16 114/80 98 05/30/17 16:12 55 05/30/17 15:00 96.0 63 20 118/77 96 05/30/17 12:00 55 05/30/17 11:30 98.0 68 20 124/76 97 05/30/17 08:00 56 05/30/17 07:50 97.7 58 20 127/79 96 I/O 05/30/17 05/30/17 05/30/17 05/31/17 05/31/17 05/31/17 06:59 14:59 22:59 06:59 14:59 22:59 Intake Total 250 ml 60 ml 1818 ml Output Total 801 ml 700 ml 600 ml Balance -551 ml -640 ml 1218 ml Intake Oral 250 ml 60 ml 600 ml IV Total 1218 ml Output Urine Total 800 ml 500 ml 600 ml Emesis 1 ml 200 ml # Voids 3 # Bowel Movements 0 0 0 Physical Exam GENERAL: Well developed, well nourished. No acute distress. HEENT: Jugular venous pressure is normal. CHEST: Lungs clear to auscultation bilaterally. Unlabored respiratory effort. CARDIAC: Regular rate and rhythm without S3, S4, or murmur. ABDOMEN: Soft, nontender, no hepatosplenomegaly. Bowel sounds present. EXTREMITIES: No clubbing, cyanosis, or edema. Laboratory Laboratory Tests Test 05/30/17 05/30/17 12:03 12:15 Total Bilirubin 2.1 MG/DL Direct Bilirubin 0.4 MG/DL Indirect Bilirubin 1.7 MG/DL Lactic Acid Level 1.5 mmol/L Assessment and Plan Problem List: (1) Atypical chest pain Assessment and Plan: Atypical chest discomfort persists, constant for past 3 days, now increasing with inspiration, clearly noncardiac in origin. Negative cardiac enzymes despite prolonged CP. No PE evidence on chest CTA. Echo unremarkable. Rec no additional cardiac w/u at this time. (2) Paroxysmal supraventricular tachycardia Assessment and Plan: Probable paroxysmal atrial flutter with 2:1 AV conduction. No further episodes. Patient does note occasional rapid palpitations at home, associated with lightheadedness. HR's occasionally 40's even when awake, making use of beta or calcium channel amador difficult. Await EP consult. Will leave remaining cardiac evaluation/care to Dr. Olvera. Code Status full code Discussed Condition With patient, at length Elan Miguel MD May 31, 2017 07:27
[2017-05-31 08:40] LABS: AUTOMATED NEUTROPHIL # 2.9 TH/MM3 (1.8-7.7); BASOPHIL % 0.7 % (0.0-2.0); EOSINOPHIL # 0.2 TH/MM3 (0-0.4); EOSINOPHIL % 5.9 % (0.0-4.0); HEMATOCRIT 44.6 % (39.0-51.0); HEMO FLAGS DIFF FINAL; LYMPH % 16.3 % (9.0-44.0); LYMPHOCYTE # 0.7 TH/MM3 (1.0-4.8); MEAN CELL VOLUME 98.6 FL (80.0-100.0); MEAN CORPUSCULAR HEMOGLOBIN 33.5 PG (27.0-34.0); MEAN CORPUSCULAR HGB CONC 33.9 % (32.0-36.0); MONO % 6.7 % (0.0-8.0); NEUT % 70.4 % (16.0-70.0); PLATELET COUNT 133 TH/MM3 (150-450); RED BLOOD COUNT 4.52 MIL/MM3 (4.50-5.90); RED CELL DISTRIBUTION WIDTH 12.4 % (11.6-17.2); WHITE BLOOD COUNT 4.1 TH/MM3 (4.0-11.0)
[2017-05-31 09:14] LABS: INDIRECT BILIRUBIN 1.5 MG/DL (0.0-0.8); TOTAL BILIRUBIN ADULT 1.8 MG/DL (0.2-1.0)
[2017-05-31 09:15] LABS: BICARBONATE 28.7 MEQ/L (21.0-32.0); POTASSIUM 3.6 MEQ/L (3.5-5.1)
[2017-05-31] MEDS: ONDANSETRON HCL 4 MG/2 ML VIAL IVP PRN (09:32)
[2017-05-31] MEDS: LORazepam 1 MG TAB PO PRN ×2 (09:32→14:06)
[2017-05-31] MEDS: DOCUSATE SODIUM 50 MG/SENNA 8.6 MG TAB PO SCH ×2 (09:33→20:33)
[2017-05-31] MEDS: PANTOPRAZOLE SODIUM 40 MG VIAL IV PUSH SCH (09:33)
[2017-05-31] MEDS: D5-1/2 NS + KCL 20 MEQ INJ 1,000 ML IV SCH ×2 (09:34→20:31)
[2017-05-31] MEDS: SODIUM CHLORIDE 0.9% FLUSH 10 ML FLUSH IV FLUSH SCH ×2 (09:34→20:31)
--- NOTE | 2017-05-31 17:45 | HHI.PR ---
Subjective Remarks Patient seen this afternoon around 1 PM. Says he is withdrawing from alcohol. Requests IV Ativan. Reports continued pain all over. Requests IV narcotic. Reports continued musculoskeletal chest pain Objective Vital Signs Date Time Temp Pulse Resp B/P Pulse Ox O2 Delivery O2 Flow Rate FiO2 05/31/17 11:30 97.7 98 20 128/76 99 05/31/17 07:50 97.5 62 20 118/87 98 05/31/17 04:01 59 05/31/17 04:00 97.9 66 16 112/76 98 05/31/17 00:01 58 05/31/17 00:00 96.4 67 16 125/82 98 05/30/17 20:00 57 05/30/17 20:00 97.7 68 16 114/80 98 I/O 05/30/17 05/30/17 05/30/17 05/31/17 05/31/17 05/31/17 07:00 15:00 23:00 07:00 15:00 23:00 Intake Total 250 ml 60 ml 1818 ml 838 ml Output Total 801 ml 700 ml 600 ml 950 ml Balance -551 ml -640 ml 1218 ml -112 ml Intake Oral 250 ml 60 ml 600 ml IV Total 1218 ml 838 ml Output Urine Total 800 ml 500 ml 600 ml 950 ml Emesis 1 ml 200 ml # Voids 3 # Bowel Movements 0 0 0 Result Diagram: 05/31/1764705/31/1748 Objective Remarks GENERAL: patient sitting up in bed. Appears comfortable. Alert and oriented 3. SKIN: Warm and dry. HEAD: Normocephalic. EYES: No scleral icterus. No injection or drainage. NECK: Supple, trachea midline. No JVD. CARDIOVASCULAR: Regular rate and rhythm without murmurs, gallops, or rubs. RESPIRATORY: Breath sounds equal bilaterally. No accessory muscle use. GASTROINTESTINAL: Abdomen soft, non-tender, nondistended. positive bowel sounds. No rebound or guarding. MUSCULOSKELETAL: No cyanosis, or edema. BACK: Nontender without obvious deformity. No CVA tenderness. A/P Assessment and Plan =======05/31/17===== //Ventricular tachycardia. -Echocardiogram reviewed. EF 50-55%. No acute findings. Awaiting electrophysiology clearance. //Transaminitis. Liver enzymes stable. Secondary to alcohol. Reviewed liver ultrasound which shows enlarged liver, otherwise no acute findings. //Alcohol withdrawal. Patient does not appear to be actively withdrawing at is requesting IV Ativan. We'll switch to Librium taper -Continue on Zosyn for pneumonia. //Atypical Chest pain -Tenderness to palpation. Suspect costochondritis. Also with esophageal burning worsened by Gatorade. Suspect reflux worsened by alcoholism. -Time of onset around bedtime on 05/28. First troponin here negative at 1 PM. -Continue PPI. Monitor. //Sepsis -Tachycardia on admission of 101, with heart rate of 20. Elevated lactate 5.3. Suspected pneumonia on CT on angiogram, with peribronchial thickening. Suspected aspiration given alcoholism. -Zosyn Follow-up cultures. Negative to date //Anion gap metabolic acidosisresolved. //Possible alcoholic ketoacidosis on admission. Resolved. //Lactic acidosis. On admission. Resolved. -Lactate 5.3 on admission. Ketones 10 on urinalysis. Lactic acidosis Likely secondary to sepsis and conjunction with liver dysfunction. We'll give thiamine , D5 half-normal saline. -Lactic acidosis resolved. Continue D5 1 half normal saline fluids. //Alcoholism. -Alcohol level in the 300s on admission. Patient denies drinking in the past day prior to admission. -Continue CIWA protocol -Cessation counseling provided. //Tobaccoism. Cessation counseling provided. Cessation strongly advised. //Hypokalemia.. Potassium 3.4 on admission. Although this typically would be considered mild, in the setting of acidosis which will be corrected, this has a potential for going lower. This is replaced, and also add to fluid. -Resolved. Potassium 3.5 on 05/30. -Continue to monitor and replace as necessary. //Marijuana use. Cessation counseling provided. Cessation strongly advised. //DVT prophylaxis. SCDs. Avoid and regulation of the setting of liver disease. Discharge Planning when cleared by cardiology (marine pilot). Boston Yañez MD May 31, 2017 17:45
[2017-05-31] MEDS: PANTOPRAZOLE SOD 40 MG DELAYED RELEASE TAB PO SCH (20:33)
[2017-06-01] VITALS (8 sets, daily range): BP systolic 107–127; BP diastolic 68–85; PULSE 64–89; RESP 16–18; TEMP 96.1–98.7; O2SAT 95–100
[2017-06-01] MEDS: PIPERACIL-TAZO 4.5 GM PREMIX 100 ML IV SCH ×3 (01:10→13:13)
[2017-06-01] MEDS: D5-1/2 NS + KCL 20 MEQ INJ 1,000 ML IV SCH (05:39)
[2017-06-01] MEDS: PANTOPRAZOLE SOD 40 MG DELAYED RELEASE TAB PO SCH (08:37)
[2017-06-01] MEDS: DOCUSATE SODIUM 50 MG/SENNA 8.6 MG TAB PO SCH (08:37)
[2017-06-01] MEDS: SODIUM CHLORIDE 0.9% FLUSH 10 ML FLUSH IV FLUSH SCH (08:38)
[2017-06-01] MEDS ORDERED: CHLO5CAP4 PO (12:07)
[2017-06-01] MEDS ORDERED: AUGM875T3 PO (12:07)
--- NOTE | 2017-06-01 14:20 | HHI.PR ---
Subjective Remarks Chest pain Objective Vital Signs Date Time Temp Pulse Resp B/P Pulse Ox O2 Delivery O2 Flow Rate FiO2 06/01/17 12:00 97.0 72 16 116/82 100 06/01/17 08:48 72 06/01/17 08:00 96.8 83 16 112/78 95 06/01/17 04:26 64 06/01/17 04:00 97.1 86 17 109/69 100 06/01/17 00:04 72 06/01/17 00:00 96.1 75 18 107/68 97 05/31/17 20:05 71 05/31/17 20:00 98.4 71 18 120/72 99 05/31/17 15:35 62 05/31/17 15:30 97.5 80 20 114/75 97 I/O 05/31/17 05/31/17 05/31/17 06/01/17 06/01/17 06/01/17 07:00 15:00 23:00 07:00 15:00 23:00 Intake Total 1818 ml 360 ml 838 ml Output Total 600 ml 1350 ml 1500 ml Balance 1218 ml 360 ml -512 ml -1500 ml Intake Oral 600 ml 360 ml IV Total 1218 ml 838 ml Output Urine Total 600 ml 1350 ml 1500 ml # Voids 3 1 # Bowel Movements 0 1 Result Diagram: 05/31/17 0648 05/31/17 0648 Imaging Alert, fully oriented Lungs: ventilated Heart: S1, S2 regular Abdomen: soft, no mass Ext: no edema Last Impressions Liver Ultrasound 05/30/17 0000 Signed Impressions: Service Date/Time: Tuesday, May 30, 2017 17:17 - CONCLUSION: 1. Hepatomegaly without focal lesion. 2. No gallstones seen. Kip Barfield MD Chest X-Ray 05/29/17 1325 Signed Impressions: Service Date/Time: Monday, May 29, 2017 13:57 - CONCLUSION: 1. No active disease. Mild scoliosis. No significant change. Al Romo MD CT Angiography 05/29/17 0000 Signed Impressions: Service Date/Time: Monday, May 29, 2017 15:34 - CONCLUSION: 1. Negative for pulmonary embolus. 2. Mild peribronchial thickening. Al Romo MD Current Medications Medications (Trade) Dose Ordered Sig/Emily Route Start Time Stop Time Status Last Admin (D5-10/30 NS + KCl 20 Meq Inj) 1,000 ml @ 100 mls/hr Q10H IV 05/29/17 18:26 06/01/17 05:39 (NS Flush) 2 ml UNSCH PRN IV FLUSH 05/29/17 18:30 (NS Flush) 2 ml BID IV FLUSH 05/29/17 21:00 05/31/17 09:34 (Zofran Inj) 4 mg Q6H PRN IVP 05/29/17 21:00 05/31/17 09:32 (Narcan Inj) 0.4 mg UNSCH PRN IV 05/29/17 18:30 (Melody-Colace) 1 tab BID PO 05/29/17 21:00 06/01/17 08:37 (Milk Of Magnesia Liq) 30 ml Q12H PRN PO 05/29/17 18:30 (Senokot) 17.2 mg Q12H PRN PO 05/29/17 18:30 (Dulcolax Supp) 10 mg DAILY PRN RECTAL 05/29/17 18:30 Lactulose 30 ml 30 ml DAILY PRN PO 05/29/17 18:30 (Zosyn 4.5 Gm Premix) 100 ml @ 200 mls/hr Q6H IV 05/30/17 00:00 06/01/17 13:13 (Protonix) 40 mg BID PO 05/31/17 21:00 06/01/17 08:37 (Librium) 5 mg TID PO 05/31/17 18:00 06/01/17 13:13 Assessment and Plan Problem List: (1) Paroxysmal supraventricular tachycardia Status: Acute Plan: In sinus rhythm. Stable Some jatinder observed but asymptomatic. No other episode of rapid heart rate observed. Patient can be DH when ok with managing team I will be available on a PRN basis (2) Atypical chest pain Status: Acute Plan: Complaining of chest pain on palpation. Pain management will be necessary Case discussed with Dr Love (3) Sepsis Status: Acute Plan: Improving Problem Qualifiers (1) Sepsis: Qualified Code: A41.9 - Sepsis, due to unspecified organism Lucia Olvera MD Jun 01, 2017 14:20
--- NOTE | 2017-06-01 14:49 | MB ---
cc: BILLY STALEY M.D. DATE OF CONSULTATION 05/30/17 REASON FOR CONSULTATION Wide complex tachyarrhythmia. HISTORY OF PRESENT ILLNESS Mr. Danielle is a 37-year-old gentleman with history of spontaneous pneumothorax, essential tremor, apparent alcoholism, admitted due to possible sepsis. During hospitalization antibiotics initiated. The patient referred episode of dizziness before hospitalization. He has a history of liver disease. Around 8:00 a.m. the patient developed now complex tachyarrhythmia. Was seen by senior national account manager. I was consulted for further evaluation and management. The chart was reviewed. The patient was evaluated. ALLERGIES None. SOCIAL HISTORY The patient denied drinking ___ he has liver failure and his alcohol level was very high. He refers smoking a couple of cigarettes a day. FAMILY HISTORY Noncontributory to his current medical condition. MEDICATIONS On hospitalization the gentleman on: 1. Protonix. 2. Librium. 3. Zosyn. 4. Zofran. 5. Flumazenil. 6. Ativan. REVIEW OF SYSTEMS He refers feeling tired, not in the mood to talk. No vomiting. No fever. PHYSICAL EXAMINATION GENERAL: Alert, oriented, in bed. VITAL SIGNS: His blood pressure on evaluation 118/77, pulse 63, respiratory rate 18 LUNGS: Ventilated. CARDIOVASCULAR: S1-S2 regular. ABDOMEN: Soft. No mass. No bruits. EXTREMITIES: No edema. CARDIOLOGY STUDIES Electrocardiogram sinus rhythm, minimal ST and T-wave changes. LABORATORY DATA Hemoglobin 13.2, white blood cell 4.2, potassium is 3.5, creatinine is 0.74. INR is 0.9. ASSESSMENT AND RECOMMENDATIONS Mr. Danielle is stable. He has a now complex tachyarrhythmia. Ejection fraction is 55%. This is most likely supraventricular tachyarrhythmia. The patient has multiple comorbidities. He has liver failure. He has sepsis. This is not apparently ventricular tachycardia. At this point my recommendation is continue on medical management. Observation. If patient has another episode then electrophysiology study will be considered. Case discussed with the patient and the nurse. Billy Staley MD HS/EO /2:10 PM /2:34 PM
--- NOTE | 2017-06-01 15:38 | HHI.PR ---
Subjective Remarks Patient seen this afternoon around 1 PM. Walking around without difficulty. Reports musculoskeletal chest pain persists. Denies any nausea or vomiting. Discussed importance of alcohol cessation. He is very angry about any mention of alcohol. Mother at bedside says this has been an ongoing issue. I discussed the importance of alcohol cessation Discussed also with fax machine repairer, who has cleared patient for discharge. Objective Vital Signs Date Time Temp Pulse Resp B/P Pulse Ox O2 Delivery O2 Flow Rate FiO2 06/01/17 12:00 97.0 72 16 116/82 100 06/01/17 08:48 72 06/01/17 08:00 96.8 83 16 112/78 95 06/01/17 04:26 64 06/01/17 04:00 97.1 86 17 109/69 100 06/01/17 00:04 72 06/01/17 00:00 96.1 75 18 107/68 97 05/31/17 20:05 71 05/31/17 20:00 98.4 71 18 120/72 99 I/O 05/31/17 05/31/17 05/31/17 06/01/17 06/01/17 06/01/17 07:00 15:00 23:00 07:00 15:00 23:00 Intake Total 1818 ml 360 ml 838 ml 720 ml Output Total 600 ml 1350 ml 1500 ml Balance 1218 ml 360 ml -512 ml -1500 ml 720 ml Intake Oral 600 ml 360 ml 720 ml IV Total 1218 ml 838 ml Output Urine Total 600 ml 1350 ml 1500 ml # Voids 3 1 3 # Bowel Movements 0 1 Result Diagram: 05/31/17 0648 05/31/17 0648 Objective Remarks GENERAL: patient walking around in room.. Appears comfortable. Alert and oriented 3. SKIN: Warm and dry. HEAD: Normocephalic. EYES: No scleral icterus. No injection or drainage. NECK: Supple, trachea midline. No JVD. CARDIOVASCULAR: Regular rate and rhythm without murmurs, gallops, or rubs. RESPIRATORY: Breath sounds equal bilaterally. No accessory muscle use. GASTROINTESTINAL: Abdomen soft, non-tender, nondistended. positive bowel sounds. No rebound or guarding. MUSCULOSKELETAL: No cyanosis, or edema. BACK: Nontender without obvious deformity. No CVA tenderness. A/P Assessment and Plan 06/01. Discussed with cardiology. SVT. Clear for discharge from cardiology standpoint. Discussed importance of following up with a primary care doctor, as well as alcohol cessation. also discussed tobacco cessation. Patient is not interested in either. Mother at bedside. Discussed with her as well. We'll continue antibiotics to complete treatment course. =======05/31/17===== //Ventricular tachycardia. -Echocardiogram reviewed. EF 50-55%. No acute findings. Awaiting electrophysiology clearance. //Transaminitis. Liver enzymes stable. Secondary to alcohol. Reviewed liver ultrasound which shows enlarged liver, otherwise no acute findings. //Alcohol withdrawal. Patient does not appear to be actively withdrawing at is requesting IV Ativan. We'll switch to Librium taper -Continue on Zosyn for pneumonia. //Atypical Chest pain -Tenderness to palpation. Suspect costochondritis. Also with esophageal burning worsened by Gatorade. Suspect reflux worsened by alcoholism. -Time of onset around bedtime on 05/28. First troponin here negative at 1 PM. -Continue PPI. Monitor. //Sepsis -Tachycardia on admission of 101, with heart rate of 20. Elevated lactate 5.3. Suspected pneumonia on CT on angiogram, with peribronchial thickening. Suspected aspiration given alcoholism. -Zosyn Follow-up cultures. Negative to date //Anion gap metabolic acidosisresolved. //Possible alcoholic ketoacidosis on admission. Resolved. //Lactic acidosis. On admission. Resolved. -Lactate 5.3 on admission. Ketones 10 on urinalysis. Lactic acidosis Likely secondary to sepsis and conjunction with liver dysfunction. We'll give thiamine , D5 half-normal saline. -Lactic acidosis resolved. Continue D5 1 half normal saline fluids. //Alcoholism. -Alcohol level in the 300s on admission. Patient denies drinking in the past day prior to admission. -Continue CIWA protocol -Cessation counseling provided. //Tobaccoism. Cessation counseling provided. Cessation strongly advised. //Hypokalemia.. Potassium 3.4 on admission. Although this typically would be considered mild, in the setting of acidosis which will be corrected, this has a potential for going lower. This is replaced, and also add to fluid. -Resolved. Potassium 3.5 on 05/30. -Continue to monitor and replace as necessary. //Marijuana use. Cessation counseling provided. Cessation strongly advised. //DVT prophylaxis. SCDs. Avoid and regulation of the setting of liver disease. Discharge Planning cleared by cardiology. Boston Yañez MD Jun 01, 2017 15:38
--- NOTE | 2017-06-01 15:40 | HHI.DS ---
Discharge Summary Admission Date May 29, 2017 at 18:24 Discharge Date: Jun 01, 2017 Admitting Diagnosis SEPSIS (1) Alcoholic fatty liver ICD Code: K70.0 (2) Alcoholic ketoacidosis ICD Code: E87.2 (3) Atypical chest pain ICD Code: R07.89 (4) Paroxysmal supraventricular tachycardia ICD Code: I47.1 (5) Sepsis ICD Code: A41.9 Procedures no invasive procedures. Brief History - From Admission 37-year-old male with a history of liver disease, essential tremor, who presents with onset of extreme chest pain the evening of 05/28. Patient says he pain is like somebody standing on his chest. No exacerbating or relieving factors. Tenderness to self palpation. Patient denies that this feels like reflux. He does say that Gatorade here is making his esophagus burn however. He denies any nausea or vomiting. Denies any shortness of breath. Denies any lightheadedness or dizziness. CBC/BMP: 05/31/17 0648 05/31/17 0648 Significant Findings Laboratory Tests Test 05/29/17 05/29/17 05/29/17 05/30/17 17:00 17:05 21:10 06:53 Lactic Acid Level 5.3 mmol/L 4.3 mmol/L (0.4-2.0) (0.4-2.0) Blood Gas Base Excess 2.5 mmol/L (-2-2) Arterial Blood pH 7.52 (7.380-7.420) Arterial Blood Partial 31 mmHg (38-42) Pressure CO2 Red Blood Count 3.93 MIL/MM3 (4.50-5.90) Hematocrit 37.8 % (39.0-51.0) Platelet Count 135 TH/MM3 (150-450) Neutrophils (%) (Auto) 71.9 % (16.0-70.0) Monocytes (%) (Auto) 9.0 % (0.0-8.0) Lymphocytes # (Auto) 0.7 TH/MM3 (1.0-4.8) Blood Urea Nitrogen 5 MG/DL (7-18) Random Glucose 118 MG/DL (74-106) Calcium Level 8.3 MG/DL (8.5-10.1) Total Bilirubin 2.3 MG/DL (0.2-1.0) Aspartate Amino Transf 55 U/L (15-37) (AST/SGOT) Test 05/30/17 05/31/17 12:03 06:48 Total Bilirubin 2.1 MG/DL 1.8 MG/DL (0.2-1.0) (0.2-1.0) Direct Bilirubin 0.4 MG/DL 0.3 MG/DL (0.0-0.2) (0.0-0.2) Indirect Bilirubin 1.7 MG/DL 1.5 MG/DL (0.0-0.8) (0.0-0.8) Platelet Count 133 TH/MM3 (150-450) Neutrophils (%) (Auto) 70.4 % (16.0-70.0) Eosinophils (%) (Auto) 5.9 % (0.0-4.0) Lymphocytes # (Auto) 0.7 TH/MM3 (1.0-4.8) Blood Urea Nitrogen 2 MG/DL (7-18) Aspartate Amino Transf 58 U/L (15-37) (AST/SGOT) Imaging Last Impressions Liver Ultrasound 05/30/17 0000 Signed Impressions: Service Date/Time: Tuesday, May 30, 2017 17:17 - CONCLUSION: 1. Hepatomegaly without focal lesion. 2. No gallstones seen. Kip Barfield MD Chest X-Ray 05/29/17 1325 Signed Impressions: Service Date/Time: Monday, May 29, 2017 13:57 - CONCLUSION: 1. No active disease. Mild scoliosis. No significant change. Al Romo MD CT Angiography 05/29/17 0000 Signed Impressions: Service Date/Time: Monday, May 29, 2017 15:34 - CONCLUSION: 1. Negative for pulmonary embolus. 2. Mild peribronchial thickening. Al Romo MD Hospital Course 06/01. Discussed with cardiology. SVT. Clear for discharge from cardiology standpoint. Discussed importance of following up with a primary care doctor, as well as alcohol cessation. also discussed tobacco cessation. Patient is not interested in either. Mother at bedside. Discussed with her as well. We'll continue antibiotics to complete treatment course. =======05/31/17===== //Ventricular tachycardia. -Echocardiogram reviewed. EF 50-55%. No acute findings. Awaiting electrophysiology clearance. //Transaminitis. Liver enzymes stable. Secondary to alcohol. Reviewed liver ultrasound which shows enlarged liver, otherwise no acute findings. //Alcohol withdrawal. Patient does not appear to be actively withdrawing at is requesting IV Ativan. We'll switch to Librium taper -Continue on Zosyn for pneumonia. //Atypical Chest pain -Tenderness to palpation. Suspect costochondritis. Also with esophageal burning worsened by Gatorade. Suspect reflux worsened by alcoholism. -Time of onset around bedtime on 05/28. First troponin here negative at 1 PM. -Continue PPI. Monitor. //Sepsis -Tachycardia on admission of 101, with heart rate of 20. Elevated lactate 5.3. Suspected pneumonia on CT on angiogram, with peribronchial thickening. Suspected aspiration given alcoholism. -Zosyn Follow-up cultures. Negative to date //Anion gap metabolic acidosisresolved. //Possible alcoholic ketoacidosis on admission. Resolved. //Lactic acidosis. On admission. Resolved. -Lactate 5.3 on admission. Ketones 10 on urinalysis. Lactic acidosis Likely secondary to sepsis and conjunction with liver dysfunction. We'll give thiamine , D5 half-normal saline. -Lactic acidosis resolved. Continue D5 1 half normal saline fluids. //Alcoholism. -Alcohol level in the 300s on admission. Patient denies drinking in the past day prior to admission. -Continue CIWA protocol -Cessation counseling provided. //Tobaccoism. Cessation counseling provided. Cessation strongly advised. //Hypokalemia.. Potassium 3.4 on admission. Although this typically would be considered mild, in the setting of acidosis which will be corrected, this has a potential for going lower. This is replaced, and also add to fluid. -Resolved. Potassium 3.5 on 05/30. -Continue to monitor and replace as necessary. //Marijuana use. Cessation counseling provided. Cessation strongly advised. //DVT prophylaxis. SCDs. Avoid and regulation of the setting of liver disease. Discharge Planning cleared by cardiology. Pt Condition on Discharge: Good Discharge Disposition: Discharge Home Discharge Time: > 30 minutes Discharge Instructions DIET: Follow Instructions for: As Tolerated, No Restrictions Activities you can perform: Regular-No Restrictions Follow up Referrals: Cardiology - 2 Weeks with Lucia Olvera MD PCP Follow-up - 1 Week New Medications: Amoxicillin-Clavulanate (Augmentin) 875-125 Mg Tab 1 TAB PO BID Infection Days 11 Ref 0 TAB Chlordiazepoxide HCl (Chlordiazepoxide HCl) 5 Mg Capsule 1 TAB PO DIRECTED Take THREE Times daily for 3 Days, then TWICE daily for 3 days, then ONCE a day for 3 Days. Alcohol Detox #18 TAB Boston Yañez MD Jun 01, 2017 15:40
== END 2017-06-01 17:18 | disposition home or self-care (01) | DRG 871 ==
LOC: NEPE 12:59 → NEDA 18:24 → HOCA 21:39
PROVIDERS: ADMIT Internal Medicine; ATTEND Internal Medicine
DX: A41.9 Sepsis, unspecified organism (principal); J18.9 Pneumonia, unspecified organism; I47.2 Ventricular tachycardia; E87.2 Acidosis; I47.1 Supraventricular tachycardia; K70.0 Alcoholic fatty liver; F10.239 Alcohol dependence with withdrawal, unspecified; G25.0 Essential tremor; R74.0 Nonspecific elevation of levels of transaminase and lactic acid dehydrogenase [LDH]; M94.0 Chondrocostal junction syndrome [Tietze]; K21.9 Gastro-esophageal reflux disease without esophagitis; E87.6 Hypokalemia; F12.90 Cannabis use, unspecified, uncomplicated; F17.210 Nicotine dependence, cigarettes, uncomplicated; Y90.8 Blood alcohol level of 240 mg/100 ml or more
CPT/HCPCS: 36600; 71010; 71275; 76705; 80048; 80053; 80076; 80307; 81001; 82247; 82248; 82550; 82552; 82805; 83605; 83690; 83735; 84484; 85025; 85379; 85610; 85730; 87040; 93005; 93306; 96361; 96374; C9113; J2060; J2270; J2405; J2543; J3370; J3411; J3480; J7030; J7040; J7050; Q9967

== ENCOUNTER 2017-08-13 11:35 | Inpatient (IN) | payer SELFPAY ==
[~2017-08-13] VITALS: Ht 188 cm; Wt 74.5 kg
[~2017-08-13 11:35] MED LIST changes: +AUGM875T3 PO; +CHLO5CAP4 PO; -RANI150 PO; -ZOFR4TAB3 PO
[2017-08-13 11:37] VITALS: BP 137/91; PULSE 133; RESP 19; TEMP 97.8; O2SAT 96
[2017-08-13] MEDS ORDERED: PANTOPRAZOLE SODIUM 40 MG VIAL IVP ONE (13:15)
[2017-08-13] MEDS ORDERED: LORazepam 2 MG/ML VIAL IV PUSH ONE (13:15)
[2017-08-13] MEDS ORDERED: SODIUM CHLORIDE 0.9% FLUSH 10 ML FLUSH IV FLUSH PRN ×3 (13:15→16:30)
[2017-08-13] MEDS ORDERED: ONDANSETRON HCL 4 MG/2 ML VIAL IVP ONE (13:15)
[2017-08-13] MEDS ORDERED: SODIUM CHLOR 0.9% 1000 ML INJ 1,000 ML IV ONE ×2 (13:15→16:15)
--- NOTE | 2017-08-13 13:26 | PD ---
HPI Chief Complaint: GI Complaint Time Seen by Provider: 13:08 Travel History International Travel<30 days: No Contact w/Intl Traveler<30days: No Traveled to known affect area: No History of Present Illness HPI This patient complains of epigastric pain and nausea and vomiting. He's noticed some blood in his vomit. Duration 3 days. Patient is an alcoholic who last drank on Sunday, 2 days ago. No diarrhea or rectal bleeding. Symptoms are severe in nature. No alleviating factors. Symptoms exacerbated by his abrupt cessation of alcohol. PFSH Past Medical History Blood Disorders: No Anxiety: Yes Depression: Yes Cancer: No Cardiovascular Problems: No Diabetes: No Diminished Hearing: No Endocrine: No Gastrointestinal Disorders: Yes (SEVERE HEMORRHOIDS, COLONOSCOPY) Implanted Vascular Access Dvce: No Musculoskeletal: Yes (SCOLIOSIS) Neurologic: Yes (ESSENTIAL TREMOR) Psychiatric: Yes Respiratory: Yes (PNEUMOTHORAX, chronic bronchitis) Immunizations Current: Yes Pneumonia: Yes (PNEUMOTHORAX) Past Surgical History Other Surgery: Yes (PNUEMOTHORAX 2005) Social History Alcohol Use: Yes (twice a day) Tobacco Use: Yes (1/2 pack per day ) Substance Use: Yes (MARIJUANA ) Allergies-Medications (Allergen,Severity, Reaction): Coded Allergies: No Known Allergies (Verified , 05/29/17) Reported Meds & Prescriptions Reported Meds & Active Scripts Active Review of Systems General / Constitutional: No: Fever Eyes: No: Visual changes HENT: No: Headaches Cardiovascular: Positive: Tachycardia, No: Chest Pain or Discomfort Respiratory: No: Shortness of Breath Gastrointestinal: Positive: Nausea, Vomiting, Abdominal Pain, Hematemesis Genitourinary: No: Dysuria Musculoskeletal: No: Pain Skin: No Rash Neurologic: No: Weakness Psychiatric: Positive: Substance Abuse, No: Depression Endocrine: No: Polydipsia Hematologic/Lymphatic: No: Easy Bruising Physical Exam Narrative GENERAL: Thin well-developed patient with tremor and vomiting and tachycardia. Prominent smell of ketones wafts from his breath SKIN: Focused skin assessment reveals no rash and nodules. Skin is Warm and dry. HEAD: Atraumatic. Normocephalic. EYES: Pupils equal and round. No scleral icterus. No injection or drainage. ENT: No nasal bleeding or discharge. Mucous membranes pink and moist. NECK: Trachea midline. No JVD. CARDIOVASCULAR: Regular rate and rhythm. No murmur appreciated. Tachycardic at 130 RESPIRATORY: No accessory muscle use. Clear to auscultation. Breath sounds equal bilaterally. GASTROINTESTINAL: Abdomen soft, non-tender, nondistended. Hepatic and splenic margins not palpable. MUSCULOSKELETAL: No obvious deformities. No clubbing. No cyanosis. No edema. NEUROLOGICAL: Awake and alert. No obvious cranial nerve deficits. Motor grossly within normal limits. Normal speech. PSYCHIATRIC: Appropriate mood and affect; insight and judgment poor . Data Data Last Documented VS Vital Signs Date Time Temp Pulse Resp B/P (MAP) Pulse Ox O2 Delivery O2 Flow Rate FiO2 08/13/17 11:37 97.8 133 19 137/91 (106) 96 Orders Orders Complete Blood Count With Diff (08/13/17 13:15) Comprehensive Metabolic Panel (08/13/17 13:15) Lipase (08/13/17 13:15) Prothrombin Time / Inr (Pt) (08/13/17 13:15) Act Partial Throm Time (Ptt) (08/13/17 13:15) Iv Access Insert/Monitor (08/13/17 13:15) Ecg Monitoring (08/13/17 13:15) Oximetry (08/13/17 13:15) NPO (08/13/17 13:15) Ondansetron Inj (Zofran Inj) (08/13/17 13:15) Pantoprazole Inj (Protonix Inj) (08/13/17 13:15) Sodium Chloride 0.9% Flush (Ns Flush) (08/13/17 13:15) Electrocardiogram (08/13/17 13:15) Beta Hydroxybutyrate (Acetone) (08/13/17 13:15) Sodium Chlor 0.9% 1000 Ml Inj (Ns 1000 M (08/13/17 13:15) Lorazepam Inj (Ativan Inj) (08/13/17 13:15) Alcohol (Ethanol) (08/13/17 13:26) Sodium Chlor 0.9% 1000 Ml Inj (Ns 1000 M (08/13/17 16:15) Labs Laboratory Tests Test 08/13/17 15:02 White Blood Count 13.3 TH/MM3 Red Blood Count 4.83 MIL/MM3 Hemoglobin 15.6 GM/DL Hematocrit 45.4 % Mean Corpuscular Volume 94.0 FL Mean Corpuscular Hemoglobin 32.3 PG Mean Corpuscular Hemoglobin Concent 34.3 % Red Cell Distribution Width 13.1 % Platelet Count 247 TH/MM3 Mean Platelet Volume 6.8 FL Neutrophils (%) (Auto) 88.6 % Lymphocytes (%) (Auto) 2.7 % Monocytes (%) (Auto) 8.5 % Eosinophils (%) (Auto) 0.0 % Basophils (%) (Auto) 0.2 % Neutrophils # (Auto) 11.8 TH/MM3 Lymphocytes # (Auto) 0.4 TH/MM3 Monocytes # (Auto) 1.1 TH/MM3 Eosinophils # (Auto) 0.0 TH/MM3 Basophils # (Auto) 0.0 TH/MM3 CBC Comment DIFF FINAL Differential Comment Prothrombin Time 10.2 SEC Prothromb Time International Ratio 0.9 RATIO Activated Partial Thromboplast Time 23.4 SEC Blood Urea Nitrogen 13 MG/DL Creatinine 1.17 MG/DL Random Glucose 164 MG/DL Total Protein 8.2 GM/DL Albumin 4.7 GM/DL Calcium Level 8.9 MG/DL Alkaline Phosphatase 80 U/L Aspartate Amino Transf (AST/SGOT) 26 U/L Alanine Aminotransferase (ALT/SGPT) 34 U/L Total Bilirubin 1.3 MG/DL Sodium Level 140 MEQ/L Potassium Level 4.1 MEQ/L Chloride Level 103 MEQ/L Carbon Dioxide Level 19.2 MEQ/L Anion Gap 18 MEQ/L Estimat Glomerular Filtration Rate 70 ML/MIN Lipase 110 U/L Ethyl Alcohol Level LESS THAN 3 MG/DL B-Hydroxybutyrate 6.91 MMOL/L MDM Medical Decision Making Medical Screen Exam Complete: Yes Emergency Medical Condition: Yes Medical Record Reviewed: Yes Differential Diagnosis Alcohol withdrawal, alcoholic ketosis, dehydration, upper GI bleed Narrative Course I have reviewed the patient's electronic medical record. Patient was seen here 2 months ago and that record is reviewed. IV placed I gave him a liter of normal saline IV and IV Zofran and IV Ativan and IV Protonix I reviewed his EKG which shows sinus rhythm without ectopy or ST elevation Extended cardiac monitoring reveals sinus tachycardia CBC minor leukocytosis Metabolic profile normal LFTs is normal Lipase is normal Coagulation studies are normal Alcohol level is negative Beta hydroxybutyrate is very elevated Patient has alcohol withdrawal and alcoholic ketosis. I started a second liter normal saline IV. He is not stable for discharge. He will require inpatient evaluation for alcohol withdrawal syndrome and need IV fluids I reviewed with Dr. Garcia who will admit Diagnosis Primary Impression: Alcohol withdrawal delirium, acute, hyperactive Additional Impression: Alcoholic ketoacidosis Admitting Information Admitting Physician Requests: Admit Cristobal Gonzalez MD Aug 13, 2017 13:26
[2017-08-13 15:14] LABS: AUTOMATED NEUTROPHIL # 11.8 TH/MM3 (1.8-7.7); BASOPHIL % 0.2 % (0.0-2.0); HEMATOCRIT 45.4 % (39.0-51.0); HEMO FLAGS DIFF FINAL; LYMPH % 2.7 % (9.0-44.0); LYMPHOCYTE # 0.4 TH/MM3 (1.0-4.8); MEAN CORPUSCULAR HEMOGLOBIN 32.3 PG (27.0-34.0); MEAN CORPUSCULAR HGB CONC 34.3 % (32.0-36.0); MONO % 8.5 % (0.0-8.0); NEUT % 88.6 % (16.0-70.0); PLATELET COUNT 247 TH/MM3 (150-450); RED BLOOD COUNT 4.83 MIL/MM3 (4.50-5.90); RED CELL DISTRIBUTION WIDTH 13.1 % (11.6-17.2); WHITE BLOOD COUNT 13.3 TH/MM3 (4.0-11.0)
[2017-08-13 15:30] LABS: INTERNATIONAL NORMALIZED RATIO 0.9 RATIO; PROTHROMBIN TIME - PATIENT 10.2 SEC (9.8-11.6)
[2017-08-13 15:38] LABS: APTT (PATIENT) 23.4 SEC (24.3-30.1)
[2017-08-13 15:46] LABS: ALKALINE PHOSPHATASE 80 U/L (45-117); BETA-HYDROXYBUTYRATE 6.91 MMOL/L (0.00-0.39); TOTAL BILIRUBIN ADULT 1.3 MG/DL (0.2-1.0)
[2017-08-13 15:48] LABS: ALT (GPT) 34 U/L (12-78); ANION GAP 18 MEQ/L (5-15); AST (GOT) 26 U/L (15-37); BICARBONATE 19.2 MEQ/L (21.0-32.0); BLOOD UREA NITROGEN 13 MG/DL (7-18); CHLORIDE 103 MEQ/L (98-107); GLOMERULAR FILTRATION RATE 70 ML/MIN (>89); POTASSIUM 4.1 MEQ/L (3.5-5.1); SODIUM (NA) 140 MEQ/L (136-145)
[2017-08-13] MEDS ORDERED: NALOXONE HCL 0.4 MG/ML AMP IV PUSH PRN (16:30)
[2017-08-13] MEDS ORDERED: MORPHINE SULFATE 4 MG/ML INJ IV PUSH PRN (16:30)
[2017-08-13] MEDS ORDERED: LORazepam 1 MG TAB PO PRN (16:30)
[2017-08-13] MEDS ORDERED: LORazepam 2 MG TAB PO PRN (16:30)
[2017-08-13] MEDS ORDERED: LORazepam 2 MG/ML VIAL IV PUSH PRN ×4 (16:30)
[2017-08-13] MEDS ORDERED: FLUMAZENIL 0.5 MG/5 ML VIAL IV PUSH PRN (16:30)
[2017-08-13] MEDS ORDERED: MAGNESIUM HYDROXIDE SUSP 30 ML CUP PO PRN (16:30)
[2017-08-13 16:34] VITALS: BP 127/79; PULSE 96; RESP 20; O2SAT 99
[2017-08-13] MEDS: SODIUM CHLOR 0.9% 1000 ML INJ 1,000 ML IV SCH (17:32)
[2017-08-13] MEDS: ONDANSETRON HCL 4 MG/2 ML VIAL IVP PRN (17:32)
[2017-08-13 18:00] VITALS: BP 139/63; PULSE 92; RESP 18; TEMP 97.9; O2SAT 97
--- NOTE | 2017-08-13 19:38 | HHI.HP ---
[facility] No Primary Care Physician Admission Diagnosis alcohol withdrawal, alcoholic ketosis Diagnoses: Travel History International Travel<30 Days: No Contact w/Intl Traveler <30 Da: No Traveled to Known Affected Are: No History of Present Illness Mr. Danielle is a 37-year-old male. He came into the hospital secondary to hyperemesis and hematemesis. He says that he gets bouts of nausea and vomiting every 1-2 weeks. He's never had a workup for this. Tremors present and he has essential tremor since childhood based on history. She does drink alcohol but reports he drinks alcohol about once per week. He recently drank heavily and this may have triggered his episode of nausea and vomiting. Thus far if his hemoglobin levels show no signs of high-volume bleed. He has epigastric abdominal pain. Presently smoking one half pack per day. No other complaints. Review of Systems Constitutional: DENIES: Fatigue, Fever, Chills, Change in appetite Endocrine: DENIES: Heat/cold intolerance, Polydipsia, Polyuria Eyes: DENIES: Blurred vision, Diplopia, Eye inflammation, Eye pain Ears, nose, mouth, throat: DENIES: Tinnitus, Hearing loss, Vertigo Respiratory: DENIES: Cough, Wheezing, Shortness of breath Cardiovascular: DENIES: Chest pain, Palpitations, Syncope Gastrointestinal: COMPLAINS OF: Abdominal pain, Nausea, Vomiting Musculoskeletal: DENIES: Joint pain, Muscle aches, Stiffness Integumentary: DENIES: Abnormal pigmentation, Nail changes, Pruritus, Rash Hematologic/lymphatic: DENIES: Bruising, Lymphadenopathy Immunologic/allergic: DENIES: Eczema, Urticaria Neurologic: DENIES: Abnormal gait, Headache, Paresthesias Psychiatric: DENIES: Anxiety, Confusion, Hallucinations Past Family Social History Past Medical History Gen. anxiety disorder Depression Hemorrhoids Scoliosis Essential tremor History of pneumothorax Recurrent nausea and vomiting Past Surgical History Pneumothorax related surgery Reported Medications Reported Meds & Active Scripts Active Allergies: Coded Allergies: No Known Allergies (Verified , 05/29/17) Active Ordered Medications Administered Medications Medications (Trade) Dose Ordered Sig/Emily Route PRN Reason Start Time Stop Time Status Last Admin Dose Admin Sodium Chloride 1,000 ml @ 125 mls/hr Q8H IV 08/13/17 17:00 08/13/17 17:32 Ondansetron HCl (Zofran Inj) 4 mg Q6H PRN IVP NAUSEA OR VOMITING 08/13/17 16:30 08/13/17 17:32 Chlordiazepoxide (Librium) 10 mg TID PO 08/13/17 18:00 08/13/17 18:28 Family History Osteoarthritis and father Coronary artery disease in mother Social History Patient states he smokes one half pack per day Patient drink alcohol about once per week, occasionally heavily Occasional use of marijuana Physical Exam Vital Signs Vital Signs Date Time Temp Pulse Resp B/P (MAP) Pulse Ox O2 Delivery O2 Flow Rate FiO2 08/13/17 18:00 97.9 92 18 139/63 (88) 97 08/13/17 17:39 08/13/17 16:34 96 20 127/79 (95) 99 Room Air 08/13/17 11:37 97.8 133 19 137/91 (106) 96 Physical Exam GENERAL: NAD, A&Ox3, fine motor tremor diffusely HEAD: Normocephalic. NECK: Supple, trachea midline. No lymphadenopathy. EYES: No scleral icterus. No injection or drainage. CARDIOVASCULAR: Regular rate and rhythm without murmurs, gallops, or rubs. RESPIRATORY: Breath sounds equal bilaterally. No accessory muscle use. GASTROINTESTINAL: Abdomen soft, non-tender, nondistended. MUSCULOSKELETAL: No cyanosis, or edema. SKIN: Warm and dry. NEURO: No focal neurological deficitis. Laboratory Laboratory Tests Test 08/13/17 15:02 White Blood Count 13.3 Red Blood Count 4.83 Hemoglobin 15.6 Hematocrit 45.4 Mean Corpuscular Volume 94.0 Mean Corpuscular Hemoglobin 32.3 Mean Corpuscular Hemoglobin Concent 34.3 Red Cell Distribution Width 13.1 Platelet Count 247 Mean Platelet Volume 6.8 Neutrophils (%) (Auto) 88.6 Lymphocytes (%) (Auto) 2.7 Monocytes (%) (Auto) 8.5 Eosinophils (%) (Auto) 0.0 Basophils (%) (Auto) 0.2 Neutrophils # (Auto) 11.8 Lymphocytes # (Auto) 0.4 Monocytes # (Auto) 1.1 Eosinophils # (Auto) 0.0 Basophils # (Auto) 0.0 CBC Comment DIFF FINAL Differential Comment Prothrombin Time 10.2 Prothromb Time International Ratio 0.9 Activated Partial Thromboplast Time 23.4 Blood Urea Nitrogen 13 Creatinine 1.17 Random Glucose 164 Total Protein 8.2 Albumin 4.7 Calcium Level 8.9 Alkaline Phosphatase 80 Aspartate Amino Transf (AST/SGOT) 26 Alanine Aminotransferase (ALT/SGPT) 34 Total Bilirubin 1.3 Sodium Level 140 Potassium Level 4.1 Chloride Level 103 Carbon Dioxide Level 19.2 Anion Gap 18 Estimat Glomerular Filtration Rate 70 Lipase 110 Ethyl Alcohol Level LESS THAN 3 B-Hydroxybutyrate 6.91 Result Diagram: 08/13/17 1502 08/13/17 1502 Caprini VTE Risk Assessment Caprini VTE Risk Assessment: No/Low Risk (score <= 1) Caprini Risk Assessment Model Point Value = 1 Point Value = 2 Point Value = 3 Point Value = 5 Age 41-60 Minor surgery BMI > 25 kg/m2 Swollen legs Varicose veins or History of unexplained or recurrent spontaneous Oral contraceptives or hormone replacement Sepsis (< 1 month) Serious lung disease, including pneumonia (< 1 month) Abnormal pulmonary function Acute myocardial infarction Congestive heart failure (< 1 month) History of inflammatory bowel disease Medical patient at bed rest Age 61-74 Arthroscopic surgery Major open surgery (> 45 min) Laparoscopic surgery (> 45 min) Malignancy Confined to bed (> 72 hours) Immobilizing plaster cast Central venous access Age >= 75 History of VTE Family history of VTE Factor V Leiden Prothrombin [id number] Lupus anticoagulant Anticardiolipin antibodies Elevated serum homocysteine Heparin-induced thrombocytopenia Other congenital or acquired thrombophilia Stroke (< 1 month) Elective arthroplasty Hip, pelvis, or leg fracture Acute spinal cord injury (< 1 month) Prophylaxis Regimen Total Risk Factor Score Risk Level Prophylaxis Regimen 0-1 Low Early ambulation 2 Moderate Order ONE of the following: *Sequential Compression Device (SCD) *Heparin 5000 units SQ BID 3-4 Higher Order ONE of the following medications: *Heparin 5000 units SQ TID *Enoxaparin/Lovenox 40 mg SQ daily (WT < 150 kg, CrCl > 30 mL/min) *Enoxaparin/Lovenox 30 mg SQ daily (WT < 150 kg, CrCl > 10-29 mL/min) *Enoxaparin/Lovenox 30 mg SQ BID (WT < 150 kg, CrCl > 30 mL/min) AND/OR *Sequential Compression Device (SCD) 5 or more Highest Order ONE of the following medications: *Heparin 5000 units SQ TID (Preferred with Epidurals) *Enoxaparin/Lovenox 40 mg SQ daily (WT < 150 kg, CrCl > 30 mL/min) *Enoxaparin/Lovenox 30 mg SQ daily (WT < 150 kg, CrCl > 10-29 mL/min) *Enoxaparin/Lovenox 30 mg SQ BID (WT < 150 kg, CrCl > 30 mL/min) AND *Sequential Compression Device (SCD) Assessment and Plan Problem List: (1) Hematemesis ICD Code: K92.0 - Hematemesis (2) Hyperemesis ICD Code: R11.10 - Vomiting, unspecified (3) Essential tremor ICD Code: G25.0 - Essential tremor Status: Acute Assessment and Plan Assessment and plan 37-year-old male admitted secondary to hematemesis Hematemesis Hyperemesis Hematemesis may be secondary to hyperemesis Monitor for any recurrence Follow CBC Suspect cyclic vomiting syndrome as an etiology for his hyperemesis based on history Evaluate for gastroparesis with gastric emptying study If hemoglobin level drops further we'll consider GI consult Gen. anxiety disorder Depression Follow clinically Hemorrhoids Scoliosis Essential tremor History of pneumothorax Follow clinically and follow as an outpatient DVT prophylaxis SCDs, due to bleeding Physician Certification 2 Midnight Certification Type: Admission for Inpatient Services Order for Inpatient Services The services are ordered in accordance with Medicare regulations or non- Medicare payer requirements, as applicable. In the case of services not specified as inpatient-only, they are appropriately provided as inpatient services in accordance with the 2-midnight benchmark. Estimated LOS (days): 2 days is the estimated time the patient will need to remain in the hospital, assuming treatment plan goals are met and no additional complications. Post-Hospital Plan: Home Quinton Garcia MD Aug 13, 2017 19:38
[2017-08-13 20:00] VITALS: BP 116/73; PULSE 87; RESP 20; TEMP 98; O2SAT 98
[2017-08-13] MEDS: SODIUM CHLORIDE 0.9% FLUSH 10 ML FLUSH IV FLUSH SCH (20:35)
[2017-08-13] MEDS ORDERED: SODIUM CHLORIDE 0.9% FLUSH 10 ML FLUSH IV FLUSH SCH (21:00)
[2017-08-13] MEDS: BENZOCAINE-MENTHOL (SUGAR FREE) 15 MG-3.6 MG LOZENGE BUCCAL PRN (22:22)
[2017-08-14] VITALS: BP 108/71; PULSE 75; RESP 16; TEMP 98.3; O2SAT 97
[2017-08-14] MEDS: BENZOCAINE-MENTHOL (SUGAR FREE) 15 MG-3.6 MG LOZENGE BUCCAL PRN ×2 (00:16→16:44)
[2017-08-14] MEDS: SODIUM CHLOR 0.9% 1000 ML INJ 1,000 ML IV SCH ×3 (02:17→20:28)
[2017-08-14 04:00] VITALS: BP 117/72; PULSE 75; RESP 16; TEMP 97.8; O2SAT 99
[2017-08-14 08:00] VITALS: BP 113/71; PULSE 61; RESP 18; TEMP 98.4; O2SAT 98
[2017-08-14 08:11] LABS: AUTOMATED NEUTROPHIL # 5.9 TH/MM3 (1.8-7.7); BASOPHIL % 0.2 % (0.0-2.0); EOSINOPHIL % 0.4 % (0.0-4.0); HEMATOCRIT 40.4 % (39.0-51.0); HEMO FLAGS DIFF FINAL; LYMPH % 14.5 % (9.0-44.0); LYMPHOCYTE # 1.2 TH/MM3 (1.0-4.8); MEAN CORPUSCULAR HEMOGLOBIN 32.2 PG (27.0-34.0); MEAN CORPUSCULAR HGB CONC 34.2 % (32.0-36.0); NEUT % 74.9 % (16.0-70.0); PLATELET COUNT 167 TH/MM3 (150-450); RED CELL DISTRIBUTION WIDTH 13.4 % (11.6-17.2); WHITE BLOOD COUNT 7.9 TH/MM3 (4.0-11.0)
[2017-08-14] MEDS: MULTIVITAMINS/MINERALS THERAPEUTIC TAB PO SCH (08:25)
[2017-08-14] MEDS: FOLIC ACID 1 MG TAB PO SCH (08:26)
[2017-08-14] MEDS: THIAMINE HCL 100 MG TAB PO SCH (08:26)
[2017-08-14] MEDS: SODIUM CHLORIDE 0.9% FLUSH 10 ML FLUSH IV FLUSH SCH ×2 (08:26→20:36)
[2017-08-14 08:33] LABS: ALT (GPT) 23 U/L (12-78); ANION GAP 8 MEQ/L (5-15); AST (GOT) 16 U/L (15-37); BICARBONATE 25.7 MEQ/L (21.0-32.0); BLOOD UREA NITROGEN 7 MG/DL (7-18); CHLORIDE 107 MEQ/L (98-107); GLOMERULAR FILTRATION RATE 101 ML/MIN (>89); SODIUM (NA) 141 MEQ/L (136-145)
[2017-08-14 08:36] LABS: ALKALINE PHOSPHATASE 64 U/L (45-117); TOTAL BILIRUBIN ADULT 1.3 MG/DL (0.2-1.0)
[2017-08-14] MEDS ORDERED: POTASSIUM CHLORIDE 20 MEQ PWD PACKET PO ONE ×2 (09:00→15:00)
[2017-08-14] MEDS: ONDANSETRON HCL 4 MG/2 ML VIAL IVP PRN ×2 (09:29→15:57)
[2017-08-14 12:00] VITALS: BP 109/76; PULSE 55; RESP 18; TEMP 97.3; O2SAT 95
--- NOTE | 2017-08-14 13:55 | HHI.PR ---
Subjective Remarks Vomiting is improved. Patient remains nauseous. He has poor by mouth intake. Gastric empty study pending. Potassium levels have remained low through today and are being replenished. Objective Vital Signs Date Time Temp Pulse Resp B/P (MAP) Pulse Ox O2 Delivery O2 Flow Rate FiO2 08/14/17 08:00 98.4 61 18 113/71 (85) 98 08/14/17 04:00 97.8 75 16 117/72 (87) 99 08/14/17 00:00 98.3 75 16 108/71 (83) 97 08/13/17 20:00 98.0 87 20 116/73 (87) 98 08/13/17 18:00 97.9 92 18 139/63 (88) 97 08/13/17 17:39 08/13/17 16:34 96 20 127/79 (95) 99 Room Air I/O 08/13/17 08/13/17 08/13/17 08/14/17 08/14/17 08/14/17 07:00 15:00 23:00 07:00 15:00 23:00 Intake Total 2000 ml 1600 ml Balance 2000 ml 1600 ml Intake Oral 600 ml IV Total 2000 ml 1000 ml # Voids 1 # Bowel Movements 0 Result Diagram: 08/14/17 0737 08/14/17 1256 Objective Remarks GENERAL: NAD, A&Ox3 HEAD: Normocephalic. NECK: Supple, trachea midline. No lymphadenopathy. EYES: No scleral icterus. No injection or drainage. CARDIOVASCULAR: Regular rate and rhythm without murmurs, gallops, or rubs. RESPIRATORY: Breath sounds equal bilaterally. No accessory muscle use. GASTROINTESTINAL: Abdomen soft, non-tender, nondistended. MUSCULOSKELETAL: No cyanosis, or edema. SKIN: Warm and dry. NEURO: No focal neurological deficitis. A/P Problem List: (1) Hyperemesis ICD Code: R11.10 - Vomiting, unspecified (2) Essential tremor ICD Code: G25.0 - Essential tremor Status: Acute (3) Hematemesis ICD Code: K92.0 - Hematemesis Assessment and Plan Assessment and plan 37-year-old male admitted secondary to hematemesis. Hematemesis has resolved. Nausea remains. Cyclic vomiting syndrome versus gastroparesis. Gastric empty study pending. Follow potassium levels and replace as needed. Currently potassium has not yet normalized. Hematemesis Hyperemesis Hematemesis resolved now Hematemesis may have been secondary to hyperemesis Monitor for any recurrence Follow CBC Suspect cyclic vomiting syndrome as an etiology for his hyperemesis based on history Evaluate for gastroparesis with gastric emptying study Gen. anxiety disorder Depression Follow clinically Hemorrhoids Scoliosis Essential tremor History of pneumothorax Follow clinically and follow as an outpatient DVT prophylaxis SCDs, due to bleeding Quinton Garcia MD Aug 14, 2017 13:55
[2017-08-14 16:00] VITALS: BP 117/62; PULSE 62; RESP 18; TEMP 97.8; O2SAT 94
[2017-08-14] MEDS: MORPHINE SULFATE 4 MG/ML INJ IV PUSH PRN ×2 (17:24→20:37)
[2017-08-14 20:00] VITALS: BP 100/60; PULSE 55; RESP 16; TEMP 98.3; O2SAT 97
--- NOTE | 2017-08-14 21:41 | EKG ---
Date Performed: 08/13/2017 Time Performed: 13:50:01 PTAGE: 37 years EKG: Sinus rhythm BORDERLINE RIGHT AXIS DEVIATION. SINCE PREVIOUS TRACING 05/30/2017, HEART RATE FASTER, OTHERWISE NO SIGNIFICANT CHANGE. ABNORMAL ECG NO PREVIOUS TRACING DOCTOR: John Schneider Interpretating Date/Time 08/14/2017 21:41:37
[2017-08-15] VITALS: BP 113/65; PULSE 57; RESP 14; TEMP 97.2; O2SAT 97
[2017-08-15] MEDS: MORPHINE SULFATE 4 MG/ML INJ IV PUSH PRN (02:44)
[2017-08-15] MEDS: BENZOCAINE-MENTHOL (SUGAR FREE) 15 MG-3.6 MG LOZENGE BUCCAL PRN (02:44)
[2017-08-15] MEDS: ONDANSETRON HCL 4 MG/2 ML VIAL IVP PRN ×2 (02:44→10:32)
[2017-08-15 04:00] VITALS: BP 129/70; PULSE 67; RESP 16; TEMP 97.3; O2SAT 98
[2017-08-15] MEDS: SODIUM CHLOR 0.9% 1000 ML INJ 1,000 ML IV SCH ×2 (04:21→09:00)
[2017-08-15 06:52] LABS: AUTOMATED NEUTROPHIL # 3.4 TH/MM3 (1.8-7.7); BASOPHIL % 0.4 % (0.0-2.0); EOSINOPHIL # 0.1 TH/MM3 (0-0.4); EOSINOPHIL % 1.7 % (0.0-4.0); HEMO FLAGS DIFF FINAL; LYMPHOCYTE # 1.4 TH/MM3 (1.0-4.8); MEAN CELL VOLUME 94.6 FL (80.0-100.0); MEAN CORPUSCULAR HEMOGLOBIN 32.4 PG (27.0-34.0); MEAN CORPUSCULAR HGB CONC 34.2 % (32.0-36.0); MONO % 9.6 % (0.0-8.0); NEUT % 62.3 % (16.0-70.0); PLATELET COUNT 151 TH/MM3 (150-450); RED BLOOD COUNT 4.33 MIL/MM3 (4.50-5.90); WHITE BLOOD COUNT 5.5 TH/MM3 (4.0-11.0)
[2017-08-15 07:00] LABS: ALT (GPT) 29 U/L (12-78); ANION GAP 7 MEQ/L (5-15); AST (GOT) 27 U/L (15-37); BICARBONATE 29.3 MEQ/L (21.0-32.0); BLOOD UREA NITROGEN 3 MG/DL (7-18); CHLORIDE 106 MEQ/L (98-107); GLOMERULAR FILTRATION RATE 114 ML/MIN (>89); POTASSIUM 3.3 MEQ/L (3.5-5.1); SODIUM (NA) 142 MEQ/L (136-145)
[2017-08-15 07:02] LABS: ALKALINE PHOSPHATASE 64 U/L (45-117); TOTAL BILIRUBIN ADULT 1.2 MG/DL (0.2-1.0)
[2017-08-15] MEDS: SODIUM CHLORIDE 0.9% FLUSH 10 ML FLUSH IV FLUSH SCH (07:27)
[2017-08-15 08:09] VITALS: BP 134/66; PULSE 82; RESP 18; TEMP 98.2; O2SAT 96
[2017-08-15] MEDS ORDERED: POTASSIUM CHLORIDE 10 MEQ CONTROLLED RELEASE TAB PO ONE (10:30)
[2017-08-15] MEDS: FOLIC ACID 1 MG TAB PO SCH (10:38)
[2017-08-15] MEDS: THIAMINE HCL 100 MG TAB PO SCH (10:38)
[2017-08-15] MEDS: MULTIVITAMINS/MINERALS THERAPEUTIC TAB PO SCH (10:38)
[2017-08-15] MEDS ORDERED: LORA-474 PO (10:52)
[2017-08-15] MEDS ORDERED: ZOFR4TAB PO (10:52)
--- NOTE | 2017-08-15 10:53 | HHI.DCPOC ---
Discharge Care Plan Diagnosis: (1) Nausea & vomiting (2) Dehydration (3) Alcoholic ketoacidosis Goals to Promote Your Health * To prevent worsening of your condition and complications * To maintain your health at the optimal level Directions to Meet Your Goals Take your medications as prescribed Follow your dietary instruction Follow activity as directed Keep your appointments as scheduled Take your immunizations and boosters as scheduled If your symptoms worsen call your PCP, if no PCP go to Urgent Care Center or Emergency Room Smoking is Dangerous to Your Health. Avoid second hand smoke Call the 24-hour hour crisis hotline for domestic abuse at Isaura Landeros MD Aug 15, 2017 10:53
--- NOTE | 2017-08-15 10:58 | HHI.PR ---
Subjective Remarks Written by Addie Arenas, acting as scribe for Dr. Landeros on 08/15/17 at 10: 58. Follow up nausea and vomiting. Patient seen and examined. Sitting up in bed in no apparent distress. Denies any nausea or vomiting overnight. Expresses frustration in not getting answers regarding ongoing symptoms of nausea and vomiting. Denies any recent fever, chills, chest pain, cough, shortness of breath, abdominal pain, n/v/d or dysuria. Patient agreeable with the plan to assess ability to tolerate PO intake this and to follow up with GI in the outpatient setting when discharged. Objective Vitals Vital Signs Date Time Temp Pulse Resp B/P (MAP) Pulse Ox O2 Delivery O2 Flow Rate FiO2 08/15/17 04:00 97.3 67 16 129/70 (89) 98 08/15/17 00:00 97.2 57 14 113/65 (81) 97 08/14/17 21:14 Room Air 08/14/17 20:00 98.3 55 16 100/60 (73) 97 08/14/17 16:00 97.8 62 18 117/62 (80) 94 08/14/17 12:00 97.3 55 18 109/76 (87) 95 I/O 08/14/17 08/14/17 08/14/17 08/15/17 08/15/17 08/15/17 07:00 15:00 23:00 07:00 15:00 23:00 Intake Total 1600 ml 1360 ml 1244 ml Output Total 0 ml Balance 1600 ml 1360 ml 1244 ml Intake Oral 600 ml 360 ml IV Total 1000 ml 1000 ml 1244 ml Output Urine Total 0 ml # Voids 1 1 # Bowel Movements 0 0 Result Diagram: 08/15/17 0609 08/15/17 0609 Objective Remarks GENERAL: NAD, A&Ox3, essential tremor noted. HEAD: Normocephalic. PERRL. NECK: Supple, trachea midline. No lymphadenopathy. EYES: No scleral icterus. No injection or drainage. CARDIOVASCULAR: Regular rate and rhythm without murmurs, gallops, or rubs. RESPIRATORY: Breath sounds equal bilaterally. No accessory muscle use. GASTROINTESTINAL: Abdomen soft, non-tender, nondistended. MUSCULOSKELETAL: No cyanosis, or edema. SKIN: Warm and dry. NEURO: No focal neurological deficits. A/P Problem List: (1) Hematemesis ICD Code: K92.0 - Hematemesis (2) Hyperemesis ICD Code: R11.10 - Vomiting, unspecified (3) Essential tremor ICD Code: G25.0 - Essential tremor Status: Acute Assessment and Plan Mr. Danielle is a 37-year-old male. He came into the hospital secondary to hyperemesis and hematemesis. He says that he gets bouts of nausea and vomiting every 1-2 weeks. He's never had a workup for this. Tremors present and he has essential tremor since childhood based on history. He does drink alcohol but reports he drinks alcohol about once per week. He recently drank heavily and this may have triggered his episode of nausea and vomiting. Thus far if his hemoglobin levels show no signs of high-volume bleed. Presently smoking one half pack per day. Hematemesis Hyperemesis Reported hematemesis completely resolved. H&H remained normal. No further signs of bleeding. Patient reports he would get hyperemesis whenever he eats greasy foods. This has been an ongoing problems for him. He was seen by GI previously but states he did not like them. 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 Gastric emptying study cancelled. Patient to follow up with GI in the outpatient setting. - Patient was strongly counseled to stop using alcohol as this can contribute to his symptoms. He seems to downplay his drinking. Gen. anxiety disorder Depression Discharge today with Lorazepam 1 mg PO tablets PRN for anxiety and encouraged to follow up with PCP for outpatient follow up. Hemorrhoids Scoliosis Essential tremor History of pneumothorax Follow as an outpatient. Discharge Planning Discharge home in good condition Follow up outpatient with: PCP and GI Meds: Per med rec. Diet: Heart healthy, avoid greasy and fatty foods. Activity regular as tolerated. Addie Arenas Aug 15, 2017 10:58 Isaura Landeros MD Aug 15, 2017 15:22
[2017-08-15 12:08] VITALS: BP 132/64; PULSE 74; RESP 18; TEMP 98; O2SAT 96
== END 2017-08-15 17:35 | disposition home or self-care (01) | DRG 378 ==
LOC: NEPD 11:35 → NEDA 16:27 → N04A 17:44
PROVIDERS: ADMIT Family Medicine; ATTEND Family Medicine
DX: K92.0 Hematemesis (principal); F10.231 Alcohol dependence with withdrawal delirium; E87.2 Acidosis; M41.9 Scoliosis, unspecified; F32.9 Major depressive disorder, single episode, unspecified; F41.1 Generalized anxiety disorder; G25.0 Essential tremor; F17.210 Nicotine dependence, cigarettes, uncomplicated; K64.9 Unspecified hemorrhoids; E86.0 Dehydration
CPT/HCPCS: 80053; 80307; 82010; 82948; 83690; 84132; 85025; 85610; 85730; 93005; 96361; 96374; 96375; C9113; J2060; J2270; J2405; J7030